=== PATIENT | female | born 1960 | race Caucasian/White ===

== ENCOUNTER → 2016-05-15 | Outpatient (REF) | payer MEDICARE ==
[~2016-05-15] MED LIST: ACET65TA; ALAVERT D12; CEFD300C; COMBVENT; FLEXERIL; FURO40TA2; INTELENCE; ISENTRESS; NABU750T; NORVIR; Norvir; PAXI20TA; PREZISTA; RANI150C; TESS100C; TRUVTAB5; TUMS500C; VALT500T; Z PACK
[2016-05-15 14:28] LABS: ALBUMIN/GLOBULIN RATIO 1.08 (1.00-1.93); BILIRUBIN,TOTAL 0.5 MG/DL (0.2-1.0); CALCIUM LEVEL 8.8 MG/DL (8.5-10.1); CREATININE FOR GFR 1.28 MG/DL (0.55-1.02); GLOMERULAR FILTRATION RATE 46.4 (>51); POTASSIUM SERUM 4.6 MEQ/L (3.5-5.1); TOTAL PROTEIN 7.7 GM/DL (6.4-8.2)
[2016-05-17 00:06] LABS: %CD3+CD4+CD8+ 3.4 % (Not Estab.); %CD3+CD4+CD8- 33.7 % (Not Estab.); %CD3+CD4-CD8+ 46.7 % (Not Estab.); %CD3+CD4-CD8- 1.1 % (Not Estab.); ABS CD3+CD4+CD8+ 143 /uL (Not Estab.); ABS CD3+CD4+CD8- 1415 /uL (Not Estab.); ABS CD3+CD4-CD8+ 1961 /uL (Not Estab.); ABS CD3+CD4-CD8- 46 /uL (Not Estab.); CD4/CD8 NYSDOH RATIO 0.72 (Not Estab.); Eosinophils 5 % (.); HCT 37.3 % (34.0-46.6); HGB 12.8 g/dL (11.1-15.9); Monocytes 5 % (.); Neutrophils 43 % (.)
== END ==
LOC: M SFHCPLAZ 11:24
PROVIDERS: ATTEND Internal Medicine Infectious Disease
DX: B20 Human immunodeficiency virus [HIV] disease (principal); E78.2 Mixed hyperlipidemia; Z79.899 Other long term (current) drug therapy
CPT/HCPCS: 36415; 80053; 80061; 81001; 83036; 86360; 87491; 87536; 87591; 90471; 90732; G0463

== ENCOUNTER → 2016-06-29 | Outpatient (CLI) | payer MEDICARE ==
--- NOTE | 2016-06-29 16:31 | REPMRS ---
Patient History The patient states she had a clinical breast exam in Patient is postmenopausal. Family history of prostate cancer in father. Digital Woman Screen Mammo: June 29, 2016 - Exam #: [id number] Bilateral CC and MLO view(s) were taken. Technologist: Mandy Marie, Technologist FINDINGS: There are scattered fibroglandular densities. There has been no change in the appearance of the mammogram from the prior studies. There is a mild amount of residual fibroglandular tissue which is fairly symmetric. There is no interval development of dominant mass, architectural distortion, or clustered microcalcification suggestive of malignancy. ASSESSMENT: BI-RADS/ACR category 1 mammogram. Negative. Recommendation Routine screening mammogram in 1 year (for women over age 40). This mammogram was interpreted with the aid of an FDA-approved computer-aided dectection system. Electronically Signed By: Cornelius Mccabe MD 06/29/16 [id number]
--- NOTE | 2016-07-03 08:57 | DEXA ---
AP SPINE L1 - L4 1.247 0.4 0.4 LT FEMUR TOTAL 0.908 -0.8 -0.7 RT FEMUR TOTAL 0.921 -0.7 -0.6 TOTAL BODY TOTAL OTHER DUAL FEMUR FRAX* ASSESSMENT Risk factors: Tobacco use. History of adult fracture. 10 year probability of fracture Major osteoporotic fracture 9.1 % Hip fracture 0.8 % COMMENTS: Normal bone densitometry of the spine. Normal bone densitometry of the right hip. There is low bone density of the left hip. FOLLOW-UP: Recommendation for the next bone density exam: 2 years. JACLYN
== END ==
LOC: M WHC 14:16
PROVIDERS: ATTEND Nurse Practitioner Women's Health
DX: Z01.419 Encounter for gynecological examination (general) (routine) without abnormal findings (principal); Z12.31 Encounter for screening mammogram for malignant neoplasm of breast; Z13.820 Encounter for screening for osteoporosis; Z78.0 Asymptomatic menopausal state; M81.0 Age-related osteoporosis without current pathological fracture; Z11.51 Encounter for screening for human papillomavirus (HPV); Z12.12 Encounter for screening for malignant neoplasm of rectum; Z11.3 Encounter for screening for infections with a predominantly sexual mode of transmission; F17.200 Nicotine dependence, unspecified, uncomplicated; A63.0 Anogenital (venereal) warts
CPT/HCPCS: 77080; 82270; 87491; 87591; 87624; G0101; G0123; G0202

== ENCOUNTER → 2016-06-29 | Outpatient (REF) | payer MEDICARE | LOC: M SFHCWAGY 14:31 | PROVIDERS: ATTEND Nurse Practitioner Women's Health | DX: Z01.419 Encounter for gynecological examination (general) (routine) without abnormal findings (principal); Z11.51 Encounter for screening for human papillomavirus (HPV); Z12.12 Encounter for screening for malignant neoplasm of rectum; Z11.3 Encounter for screening for infections with a predominantly sexual mode of transmission; Z13.820 Encounter for screening for osteoporosis; F17.200 Nicotine dependence, unspecified, uncomplicated; A63.0 Anogenital (venereal) warts; Z78.0 Asymptomatic menopausal state ==

== ENCOUNTER → 2016-11-01 | Outpatient (REF) | payer MEDICARE, OTHER, MEDICAID ==
[2016-11-01 10:57] LABS: ALBUMIN 3.7 GM/DL (3.2-5.2); ALBUMIN/GLOBULIN RATIO 1.09 (1.00-1.93); BILIRUBIN,TOTAL 0.3 MG/DL (0.2-1.0); CALCIUM LEVEL 8.8 MG/DL (8.5-10.1); CREATININE FOR GFR 1.22 MG/DL (0.55-1.02); GLOMERULAR FILTRATION RATE 49.1 (>51); POTASSIUM SERUM 4.6 MEQ/L (3.5-5.1); TOTAL PROTEIN 7.1 GM/DL (6.4-8.2)
[2016-11-04 00:07] LABS: %CD3+CD4+CD8+ 3.1 % (Not Estab.); %CD3+CD4-CD8+ 43.6 % (Not Estab.); %CD3+CD4-CD8- 0.8 % (Not Estab.); ABS CD3+CD4+CD8+ 96 /uL (Not Estab.); ABS CD3+CD4+CD8- 1147 /uL (Not Estab.); ABS CD3+CD4-CD8+ 1352 /uL (Not Estab.); ABS CD3+CD4-CD8- 25 /uL (Not Estab.); CD4/CD8 NYSDOH RATIO 0.85 (Not Estab.); Eosinophils 6 % (.); HCT 37.4 % (34.0-46.6); HGB 12.6 g/dL (11.1-15.9); Monocytes 6 % (.); Neutrophils 54 % (.); WBC 9.1 x10E3/uL (3.4-10.8)
== END ==
LOC: M SFHCPLAZ 07:45
PROVIDERS: ATTEND Internal Medicine Infectious Disease
DX: L30.9 Dermatitis, unspecified (principal); E78.2 Mixed hyperlipidemia; B20 Human immunodeficiency virus [HIV] disease; F33.42 Major depressive disorder, recurrent, in full remission

== ENCOUNTER → 2017-04-12 | Outpatient (REF) | payer MEDICARE, OTHER ==
[2017-04-12 14:03] LABS: TOTAL 25(OH) VITAMIN D 25.8 NG/ML (30.0-100.0)
[2017-04-12 14:07] LABS: ALBUMIN 3.8 GM/DL (3.2-5.2); ALBUMIN/GLOBULIN RATIO 1.06 (1.00-1.93); ALKALINE PHOSPHATASE 83 U/L (45-117); ALT/SGPT 13 U/L (12-78); ANION GAP 7 MEQ/L (8-16); AST/SGOT 12 U/L (7-37); BILIRUBIN,TOTAL 0.3 MG/DL (0.2-1.0); BLOOD UREA NITROGEN 13 MG/DL (7-18); CALCIUM LEVEL 8.5 MG/DL (8.5-10.1); CARBON DIOXIDE LEVEL 27 MEQ/L (21-32); CHLORIDE LEVEL 106 MEQ/L (98-107); CHOLESTEROL LEVEL 185 MG/DL (<200); CHOLESTEROL RISK RATIO 5.781 (<5); CREATININE FOR GFR 1.23 MG/DL (0.55-1.02); GLOMERULAR FILTRATION RATE 48.4 (>51); GLUCOSE, FASTING 94 MG/DL (70-105); HDL CHOLESTEROL 32 MG/DL (>40); LDL CHOLESTEROL 122.6 MG/DL (<100); NON-HDL-C 153 MG/DL; POTASSIUM SERUM 4.6 MEQ/L (3.5-5.1); SODIUM LEVEL 140 MEQ/L (136-145); TOTAL PROTEIN 7.4 GM/DL (6.4-8.2); TRIGLYCERIDES LEVEL 152 MG/DL (<150)
[2017-04-12 16:03] LABS: APPEARANCE, URINE HAZY (CLEAR); BACTERIA, URINE AUTO 1+ (NEGATIVE); BILIRUBIN, URINE AUTO 1+ (NEGATIVE); BLOOD, URINE BLOOD NEGATIVE (NEGATIVE); COLOR, URINE AMBER (YELLOW); GLUCOSE, URINE (UA) AUTO NEGATIVE (NEGATIVE); KETONE, URINE AUTO TRACE mg/dL (NEGATIVE); LEUKOCYTE ESTERASE, URINE AUTO TRACE (NEGATIVE); MUCUS, URINE SMALL (NEGATIVE); NITRITE, URINE AUTO NEGATIVE (NEGATIVE); PROTEIN, URINE AUTO NEGATIVE (NEGATIVE); RBC, URINE AUTO 15 /HPF (0-3); SPECIFIC GRAVITY URINE AUTO 1.028 (1.002-1.035); SQUAMOUS EPITHELIAL CELL UR AU 3 /HPF (0-6); WBC, URINE AUTO 3 /HPF (0-3)
[2017-04-12 17:43] LABS: CHLAMYDIA DNA AMPLIFICATION NEGATIVE (NEGATIVE); GC DNA AMPLIFICATION NEGATIVE (NEGATIVE)
[2017-04-14 14:09] LABS: QUANTIFERON GOLD TB Negative (Negative); TB Test (QFT) Antigen 0.06 IU/mL (.); TB Test (QFT) Antigen Minus Ni 0.01 IU/mL (.); TB Test (QFT) Mitogen >10.00 IU/mL (.); TB Test (QFT) Nil 0.05 IU/mL (.)
[2017-04-17 00:06] LABS: % CD8 Pos Lymph 49.9 % (12.0-35.5); %CD4 Pos Lymphs 38.2 % (30.8-58.5); ABS Basophils 0.1 x10E3/uL (0.0-0.2); ABS Eosinophils 0.6 x10E3/uL (0.0-0.4); ABS Lymphs 4.8 x10E3/uL (0.7-3.1); ABS Monocytes 0.8 x10E3/uL (0.1-0.9); ABS Neutophils 5.5 x10E3/uL (1.4-7.0); Abs CD4 Helper 1834 /uL (359-1519); Abs CD8 Suppres 2395 /uL (109-897); CD4/CD8 Ratio 0.77 (0.92-3.72); Eosinophils 5 % (Not Estab.); HCT 37.7 % (34.0-46.6); HEMATOLOGY COMMENTS Note: (.); HGB 12.2 g/dL (11.1-15.9); HIV-1 RNA PCR QUANT 2 LC550285 30 copies/mL (.); HIV-1 RNA PCR QUANT 3 LC550285 1.477 (.); Immature Grans 0 % (Not Estab.); Lymphocytes 41 % (Not Estab.); MCH 33.2 pg (26.6-33.0); MCHC 32.4 g/dL (31.5-35.7); MCV 103 fL (79-97); Monocytes 7 % (Not Estab.); Neutrophils 47 % (Not Estab.); Platelets 325 x10E3/uL (150-379); RBC 3.67 x10E6/uL (3.77-5.28); RDW 14.5 % (12.3-15.4); WBC 11.7 x10E3/uL (3.4-10.8)
== END ==
LOC: M SFHCPLAZ 10:46
DX: B20 Human immunodeficiency virus [HIV] disease (principal); E78.2 Mixed hyperlipidemia; G45.9 Transient cerebral ischemic attack, unspecified; A60.1 Herpesviral infection of perianal skin and rectum; L30.9 Dermatitis, unspecified; G56.01 Carpal tunnel syndrome, right upper limb; Z98.84 Bariatric surgery status; I73.9 Peripheral vascular disease, unspecified; F33.41 Major depressive disorder, recurrent, in partial remission; F17.200 Nicotine dependence, unspecified, uncomplicated; J30.1 Allergic rhinitis due to pollen
CPT/HCPCS: 84443

== ENCOUNTER → 2017-10-15 | Outpatient (CLI) | payer MEDICARE, OTHER, MEDICAID | LOC: M RAD 07:36 | DX: Z86.73 Personal history of transient ischemic attack (TIA), and cerebral infarction without residual deficits (principal); I87.2 Venous insufficiency (chronic) (peripheral); R60.0 Localized edema | CPT/HCPCS: 93880 ==

== ENCOUNTER → 2017-11-20 | Outpatient (REF) | payer MEDICARE, OTHER ==
[2017-11-20 13:58] LABS: ALBUMIN 3.5 GM/DL (3.2-5.2); ALBUMIN/GLOBULIN RATIO 0.92 (1.00-1.93); ALKALINE PHOSPHATASE 84 U/L (45-117); ALT/SGPT 17 U/L (12-78); ANION GAP 6 MEQ/L (8-16); AST/SGOT 13 U/L (7-37); BILIRUBIN,TOTAL 0.3 MG/DL (0.2-1.0); BLOOD UREA NITROGEN 10 MG/DL (7-18); CALCIUM LEVEL 8.7 MG/DL (8.5-10.1); CARBON DIOXIDE LEVEL 28 MEQ/L (21-32); CHLORIDE LEVEL 108 MEQ/L (98-107); CHOLESTEROL LEVEL 158 MG/DL (<200); CHOLESTEROL RISK RATIO 4.787 (<5); CREATININE FOR GFR 1.33 MG/DL (0.55-1.30); GLOMERULAR FILTRATION RATE 44.1 (>51); GLUCOSE, FASTING 87 MG/DL (70-100); HDL CHOLESTEROL 33 MG/DL (>40); LDL CHOLESTEROL 82.8 MG/DL (<100); NON-HDL-C 125 MG/DL; POTASSIUM SERUM 4.5 MEQ/L (3.5-5.1); SODIUM LEVEL 142 MEQ/L (136-145); TOTAL PROTEIN 7.3 GM/DL (6.4-8.2); TRIGLYCERIDES LEVEL 211 MG/DL (<150)
[2017-11-20 16:47] LABS: TOTAL 25(OH) VITAMIN D 22.6 NG/ML (30.0-100.0)
[2017-11-23 14:46] LABS: % CD8 Pos Lymph 46.9 % (12.0-35.5); %CD4 Pos Lymphs 39.2 % (30.8-58.5); ABS Eosinophils 0.4 x10E3/uL (0.0-0.4); ABS Lymphs 3.6 x10E3/uL (0.7-3.1); ABS Monocytes 0.6 x10E3/uL (0.1-0.9); ABS Neutophils 4.3 x10E3/uL (1.4-7.0); Abs CD4 Helper 1411 /uL (359-1519); Abs CD8 Suppres 1688 /uL (109-897); CD4/CD8 Ratio 0.84 (0.92-3.72); Eosinophils 5 % (Not Estab.); HCT 36.7 % (34.0-46.6); HIV-1 RNA PCR QUANT 2 LC550285 50 copies/mL (.); HIV-1 RNA PCR QUANT 3 LC550285 1.699 (.); Immature Grans 0 % (Not Estab.); Lymphocytes 40 % (Not Estab.); MCH 32.8 pg (26.6-33.0); MCHC 32.7 g/dL (31.5-35.7); MCV 100 fL (79-97); Monocytes 6 % (Not Estab.); Neutrophils 49 % (Not Estab.); Platelets 282 x10E3/uL (150-379); RBC 3.66 x10E6/uL (3.77-5.28); RDW 14.8 % (12.3-15.4); WBC 8.9 x10E3/uL (3.4-10.8)
== END ==
LOC: M SFHCPLAZ 12:01
DX: B20 Human immunodeficiency virus [HIV] disease (principal); E78.2 Mixed hyperlipidemia; E55.9 Vitamin D deficiency, unspecified
CPT/HCPCS: 80053

== ENCOUNTER → 2018-06-20 | Outpatient (REF) | payer MEDICARE, MEDICAID, OTHER ==
[2018-06-20 16:48] LABS: HEMOGLOBIN A1c 5.8 %
[2018-06-20 16:58] LABS: ALBUMIN 3.7 GM/DL (3.2-5.2); ALT/SGPT 17 U/L (12-78); APPEARANCE, URINE CLEAR (CLEAR); BACTERIA, URINE AUTO 1+ (NEGATIVE); BILIRUBIN, URINE AUTO NEGATIVE (NEGATIVE); BILIRUBIN,TOTAL 0.2 MG/DL (0.2-1.0); BLOOD UREA NITROGEN 10 MG/DL (7-18); BLOOD, URINE BLOOD 1+ (NEGATIVE); CALCIUM LEVEL 8.5 MG/DL (8.5-10.1); CARBON DIOXIDE LEVEL 30 MEQ/L (21-32); CHLORIDE LEVEL 105 MEQ/L (98-107); CHOLESTEROL LEVEL 166 MG/DL (<200); CHOLESTEROL RISK RATIO 5.187 (<5); COLOR, URINE YELLOW (YELLOW); CREATININE FOR GFR 1.15 MG/DL (0.55-1.30); GLOMERULAR FILTRATION RATE 52.2 (>51); GLUCOSE, FASTING 87 MG/DL (70-100); GLUCOSE, URINE (UA) AUTO NEGATIVE (NEGATIVE); HDL CHOLESTEROL 32 MG/DL (>40); KETONE, URINE AUTO NEGATIVE (NEGATIVE); LDL CHOLESTEROL 80 MG/DL (<100); LEUKOCYTE ESTERASE, URINE AUTO NEGATIVE (NEGATIVE); MUCUS, URINE SMALL (NEGATIVE); NITRITE, URINE AUTO NEGATIVE (NEGATIVE); NON-HDL-C 134 MG/DL; POTASSIUM SERUM 4.4 MEQ/L (3.5-5.1); PROTEIN, URINE AUTO NEGATIVE (NEGATIVE); RBC, URINE AUTO 2 /HPF (0-3); SODIUM LEVEL 139 MEQ/L (136-145); SPECIFIC GRAVITY URINE AUTO 1.008 (1.002-1.035); SQUAMOUS EPITHELIAL CELL UR AU 0 /HPF (0-6); TRIGLYCERIDES LEVEL 268 MG/DL (<150); UROBILINOGEN, URINE AUTO 0.2 mg/dL (0.0-2.0); WBC, URINE AUTO 0 /HPF (0-3)
[2018-06-20 17:56] LABS: CHLAMYDIA DNA AMPLIFICATION NEGATIVE (NEGATIVE); GC DNA AMPLIFICATION NEGATIVE (NEGATIVE)
[2018-06-22 14:37] LABS: % CD8 Pos Lymph 47.9 % (12.0-35.5); %CD4 Pos Lymphs 40.5 % (30.8-58.5); ABS Eosinophils 0.5 x10E3/uL (0.0-0.4); ABS Lymphs 4.5 x10E3/uL (0.7-3.1); ABS Monocytes 0.7 x10E3/uL (0.1-0.9); Abs CD4 Helper 1823 /uL (359-1519); Abs CD8 Suppres 2156 /uL (109-897); CD4/CD8 Ratio 0.85 (0.92-3.72); Eosinophils 6 % (Not Estab.); HCT 37.1 % (34.0-46.6); HGB 12.2 g/dL (11.1-15.9); Immature Grans 0 % (Not Estab.); Lymphocytes 46 % (Not Estab.); MCH 32.6 pg (26.6-33.0); MCHC 32.9 g/dL (31.5-35.7); MCV 99 fL (79-97); Monocytes 7 % (Not Estab.); Neutrophils 41 % (Not Estab.); Platelets 343 x10E3/uL (150-379); RBC 3.74 x10E6/uL (3.77-5.28); RDW 16.6 % (12.3-15.4); WBC 9.7 x10E3/uL (3.4-10.8)
[2018-06-26 00:06] LABS: HIV-1 RNA PCR QUANT 2 LC550285 40 copies/mL (.); HIV-1 RNA PCR QUANT 3 LC550285 1.602 (.)
== END ==
LOC: M SFHCPLAZ 13:36
PROVIDERS: ATTEND Internal Medicine Infectious Disease
DX: B20 Human immunodeficiency virus [HIV] disease (principal); E78.2 Mixed hyperlipidemia
CPT/HCPCS: 36415; 80053; 80061; 81001; 83036; 84443; 86360; 86480; 86780; 87491; 87536; 87591; G0463

== ENCOUNTER → 2019-01-13 | Outpatient (REF) | payer MEDICARE, MEDICAID, OTHER ==
[2019-01-13 16:18] LABS: ALBUMIN 3.5 GM/DL (3.2-5.2); BILIRUBIN,TOTAL 0.3 MG/DL (0.2-1.0); CALCIUM LEVEL 9.1 MG/DL (8.5-10.1); CHOLESTEROL RISK RATIO 3.794 (<5); CREATININE FOR GFR 1.17 MG/DL (0.55-1.30); GLOMERULAR FILTRATION RATE 50.9 (>51); POTASSIUM SERUM 4.4 MEQ/L (3.5-5.1); TOTAL PROTEIN 6.8 GM/DL (6.4-8.2)
[2019-01-13 16:29] LABS: HEMOGLOBIN A1c 5.3 %
[2019-01-17 14:29] LABS: % CD8 Pos Lymph 46.3 % (12.0-35.5); %CD4 Pos Lymphs 42.4 % (30.8-58.5); ABS Eosinophils 0.5 x10E3/uL (0.0-0.4); ABS Lymphs 5.1 x10E3/uL (0.7-3.1); ABS Monocytes 0.7 x10E3/uL (0.1-0.9); Abs CD4 Helper 2162 /uL (359-1519); Abs CD8 Suppres 2361 /uL (109-897); CD4/CD8 Ratio 0.92 (0.92-3.72); Eosinophils 5 % (Not Estab.); HCT 35.5 % (34.0-46.6); HGB 11.5 g/dL (11.1-15.9); HIV-1 RNA PCR QUANT 2 LC550285 60 copies/mL (.); HIV-1 RNA PCR QUANT 3 LC550285 1.778 (.); Immature Grans 0 % (Not Estab.); Lymphocytes 49 % (Not Estab.); MCH 32.8 pg (26.6-33.0); MCHC 32.4 g/dL (31.5-35.7); MCV 101 fL (79-97); Monocytes 7 % (Not Estab.); Neutrophils 39 % (Not Estab.); Platelets 268 x10E3/uL (150-450); RBC 3.51 x10E6/uL (3.77-5.28); RDW 15.4 % (12.3-15.4); WBC 10.2 x10E3/uL (3.4-10.8)
== END ==
LOC: M SFHCPLAZ 13:26
PROVIDERS: ATTEND Internal Medicine Infectious Disease
DX: B20 Human immunodeficiency virus [HIV] disease (principal); E78.2 Mixed hyperlipidemia
CPT/HCPCS: 36415; 80053; 80061; 83036; 86360; 87536; 90682; G0008; G0463

== ENCOUNTER → 2019-04-23 | Outpatient (CLI) | payer MEDICARE, MEDICAID ==
--- NOTE | 2019-04-24 03:52 | REP ---
Clinical: Symptoms related to possible CVA . Technique: Mccabe scale and color Doppler evaluation using linear high frequency transducer Findings: Two-dimensional mccabe scale and color images demonstrate mild mixed atheromatous plaquing with normal laminar flow and no appreciable narrowing. Color Doppler interrogation demonstrates arterial wave patterns with no significant spectral broadening. Normal flow direction is appreciated in the bilateral vertebral arteries. RIGHT (cm/s) LEFT (cm/s) ICA peak systolic velocity 82.6 76.4 ICA diastolic velocity 17.4 39.8 ECA peak systolic velocity 81.2 101.0 CCA peak systolic velocity 67.1 76.0 ICA/CCA ratio 1.23 1.01 Impression: No hemodynamically significant areas of narrowing or stenosis appreciated. Based on set standards narrowing falls within the less than 50% range. Electronically Signed by Patrick Raphael MD 04/24/2019 03:44 A
--- NOTE | 2019-04-24 03:58 | REP ---
Clinical: Symptoms related to atherosclerotic disease and intermittent claudication. Technique: Real time mccabe scale and color Doppler evaluation of the bilateral lower extremity arterial vasculature using linear high frequency transducer. Findings: Mccabe scale and color images demonstrate moderate amounts of atheromatous plaquing bilaterally along with moderate stenosis to the left profunda artery and focal occlusion in the distal anterior tibial artery with subsequent revascularization at the dorsalis pedis artery. Monophasic wave patterns noted from the right external iliac artery through the right lower extremity suggesting proximal atherosclerotic disease. Left lower extremity demonstrates triphasic wave patterns with the exception of the stenosis at the profunda. Peak systolic velocities (cm/sec) RIGHT LEFT CHANO 0.58 0.95 Common femoral artery 40 59 Profunda femoris 27 62/34 SFA (proximal) 61 47 SFA (mid) 58 81 SFA (distal) 54 68 Popliteal artery 27 49 KHUSHI (prox.) 17 18 Tibioperoneal trunk 38 43 PROGRAMMABLE LOGIC CONTROLLER ASSEMBLER (prox.) 28 39 PROGRAMMABLE LOGIC CONTROLLER ASSEMBLER (distal) 27 42 KHUSHI (distal) 10 occluded Impression: 1. Moderate atheromatous plaquing bilaterally with focal areas of stenosis/occlusion in the left lower extremity as described above. Electronically Signed by Patrick Raphael MD 04/24/2019 03:50 A
== END ==
LOC: M RAD 07:45
PROVIDERS: ATTEND Physician Assistant
DX: I65.23 Occlusion and stenosis of bilateral carotid arteries (principal); F17.200 Nicotine dependence, unspecified, uncomplicated; M79.606 Pain in leg, unspecified

== ENCOUNTER → 2019-05-05 | Outpatient (CLI) | payer MEDICARE, MEDICAID ==
[2019-05-05 12:35] LABS: HEMATOCRIT 38.9 % (36.0-47.0); HEMOGLOBIN 12.4 g/dl (12.0-15.5); MEAN CORPUSCULAR HEMOGLOBIN 32.8 pg (27.0-33.0); MEAN CORPUSCULAR HGB CONC 31.9 g/dl (32.0-36.5); MEAN CORPUSCULAR VOLUME 102.9 fl (80.0-96.0); PLATELET COUNT, AUTOMATED 279 10^3/uL (150-450); RED BLOOD COUNT 3.78 10^6/uL (4.00-5.40); WHITE BLOOD COUNT 9.6 10^3/uL (4.0-10.0)
[2019-05-05 13:01] LABS: CALCIUM LEVEL 9.6 MG/DL (8.5-10.1); CREATININE FOR GFR 1.18 MG/DL (0.55-1.30); GLOMERULAR FILTRATION RATE 50.4 (>51); POTASSIUM SERUM 4.6 MEQ/L (3.5-5.1)
== END ==
LOC: M LAB 11:13
PROVIDERS: ATTEND Physician Assistant
DX: I70.213 Atherosclerosis of native arteries of extremities with intermittent claudication, bilateral legs (principal)

== ENCOUNTER → 2019-06-10 | Outpatient (CLI) | payer MEDICARE, MEDICAID ==
[~2019-06-10] MED LIST changes: +HEPARIN 1,000 UNITS/ML 10ML VIAL (FOR RADIOLOGY& DIALYSIS ONLY)(J1644-10) As Ordered ONE; +ISOVUE-300 61% 50ML VIAL (Q9967) As Ordered ONE; +LIDOCAINE 1% MDV 20ML VIAL As Ordered ONE; +MIDAZOLAM INJ 2 MG/2 ML VIAL (J2250) As Ordered ONE; +OMEP1CAP73 PO; +PLAV1TAB2 PO; +fentaNYL 100 MCG/2 ML INJECTION (J3010) As Ordered ONE
[2019-06-10 07:22] LABS: HEMATOCRIT 36.1 % (36.0-47.0); HEMOGLOBIN 12.1 g/dl (12.0-15.5); MEAN CORPUSCULAR HEMOGLOBIN 34.4 pg (27.0-33.0); MEAN CORPUSCULAR HGB CONC 33.5 g/dl (32.0-36.5); MEAN CORPUSCULAR VOLUME 102.6 fl (80.0-96.0); PLATELET COUNT, AUTOMATED 253 10^3/uL (150-450); RED BLOOD COUNT 3.52 10^6/uL (4.00-5.40); WHITE BLOOD COUNT 9.6 10^3/uL (4.0-10.0)
[2019-06-10 07:50] LABS: CALCIUM LEVEL 8.8 MG/DL (8.5-10.1); CREATININE FOR GFR 1.28 MG/DL (0.55-1.30); GLOMERULAR FILTRATION RATE 45.9 (>51); POTASSIUM SERUM 4.4 MEQ/L (3.5-5.1)
--- NOTE | 2019-06-10 09:18 | ROOPDOC ---
[facility] Report Of Operation Report of Operation DATE OF PROCEDURE: 06/10/19 PREPROCEDURE DIAGNOSES: Atherosclerosis of the caddo vessels with lifestyle limiting claudication, right lower extremity worse than left POSTPROCEDURE DIAGNOSES: Same PROCEDURE: 1. Ultrasound-guided access left common femoral artery and right common femoral artery 2. Aortoiliofemoral arteriogram and right lower extremity runoff 3. Balloon expandable stents bilateral common iliac artery: 9 x 57 expressed stent right common iliac artery, 9 x 37 expressed at left common iliac artery 4. Completion arteriograms 5. Mynx closure bilateral common femoral arteries SURGEON: Hi Rincon MD ANESTHESIA: Local anesthesia only with 18 mL lidocaine. Sedation was not used for this procedure. CONTRAST: 47 mL Isovue-300 INDICATION FOR PROCEDURE: This is a very pleasant 58-year-old patient with atherosclerosis of the caddo vessels and lifestyle limiting claudication, right lower extremity greater than left. Her noninvasive arterial duplex suggested iliac disease, right worse than left. Risks benefits alternatives to an arteriogram potential intervention were explained to the patient and she is agreeable to proceed. Informed consent was obtained. INTERPRETATION: 1. The distal aorta is calcified but widely patent. There is a 90% stenosis at the origin of the right common iliac artery and narrowing down to the external iliac artery. The right external iliac artery is widely patent. The right hypogastric artery collateralizes with the left hypogastric artery to provide additional blood supply due to heavy plaque at the common iliac artery origin. The left common iliac artery has about a 30-40% stenosis at the origin in the proximal third of the vessel, and then has poststenotic dilatation and is widely patent through the external iliac artery. The hypogastric on the left collateralizes to the right to provide additional blood flow due to stenosis at the origin of the right common iliac artery. 2. The right common femoral artery runs off until widely patent profunda and SFA. There is good flow through this SFA to the popliteal which has in-line flow to the foot through the peroneal and posterior tibial artery. The plantar vessels are mostly filled from the posterior tibial artery. The anterior tibial artery occludes a few centimeters from its origin and does not reconstitute. There are extensive collaterals from the peroneal throughout the calf and the ankle. 3. After balloon expandable stents replaced at the origin of the common iliac arteries, there was widely patent flow through both vessels with no dissection embolization or extravasation noted. The stent is originate at the origin of the vessels, and are not kissing stents, so we have preserved our capability for up and over access in the future. REPORT OF OPERATION: The patient was brought to the angiographic suite in stable condition. Her bilateral groins were prepped and draped in a sterile fashion. A timeout was performed. The patient had mentioned before the procedure that she had a history of arrhythmias with sedation in the past, so we will attempt to do this procedure without sedation if she can tolerate it comfortably. The patient also forgot to hold her Plavix, so aside from heparin saline flushes, we will not give additional heparin and less long balloon inflations are needed. Local anesthesia was administered to the skin and subcutaneous tissue over the left common femoral artery and a microneedle was used to access the artery under ultrasound guidance. A wire was passed through this access under fluoroscopic guidance and a micro-sheath was placed. Through this access of Glidewire was advanced into the aorta and the sheath was exchanged for 6 Angolan sheath which was flushed with saline. We then advanced an Omni flushed catheter and the distal aorta and aortoiliofemoral arteriograms were performed. Please interpretation above. Local anesthesia was then administered to skin and subcutaneous tissue over the right common femoral artery and a microneedle was used to access the artery under ultrasound guidance. A wire was passed through this access and for Angolan micro-sheath was placed and flushed with saline. We then advanced a Glidewire through this access into the aorta under fluoroscopic guidance and the sheath was exchanged for a 7 Angolan sheath. The sheath on the left was also exchanged for 7 Angolan sheath. We then advanced a 9 x 37 expressed stent on the left into the common iliac artery, and a 9 x 57 expressed balloon expandable stent on the right to the common iliac artery. A quick arteriogram confirmed the origins of the vessels and we deployed the stents under fluoroscopic guidance. Following this, there was widely patent flow through both iliac systems with no dissection or embolization or extravasation noted. This dramatically improved the flow on the right, and also the inflow on the left as well. We then performed a right lower extremity runoff through the existing right common femoral sheath, please interpretation above. The patient does have occlusion of the anterior tibial artery, but she has excellent two-vessel runoff to the foot, and with the dramatic improvement in inflow, I feel this will be adequate to relieve her claudication. She does not have wounds or rest pain, as I did not feel at this time we would pursue tibial intervention. Also, the patient is still smoking, although she will start Chantix to try to quit soon, so I felt tibial intervention might be best revisited if needed after the patient tries smoking cessation and a walking program. For now, I think she has more than adequate flow to the foot. We deployed Mynx closure devices in both common femoral arteries under fluoroscopic guidance and pressure was held for 10 minutes following the platelet with good hemostasis. Sterile dressings were applied and the patient was taken to recovery in stable condition. She tolerated the procedure well without sedation and was hemodynamically stable throughout the procedure. ESTIMATED BLOOD LOSS: Approximately 5 mL. COMPLICATIONS: None. PLAN: Okay for the patient to resume her home diet and medications, including Plavix. We will see her back in clinic in a week to check her groin access sites and see how she is doing. She should continue her efforts for smoking cessation. We appreciate the opportunity to participate in the care of this patient. HI RINCON MD Jun 10, 2019 09:18
[2019-06-10 12:55] VITALS: BP 123/71
== END ==
LOC: M IRPRO 06:46
PROVIDERS: ATTEND Surgery Vascular Surgery
DX: I70.213 Atherosclerosis of native arteries of extremities with intermittent claudication, bilateral legs (principal); I65.23 Occlusion and stenosis of bilateral carotid arteries; B20 Human immunodeficiency virus [HIV] disease; F17.210 Nicotine dependence, cigarettes, uncomplicated; R51 Headache; M54.9 Dorsalgia, unspecified; Z88.6 Allergy status to analgesic agent; Z79.899 Other long term (current) drug therapy
CPT/HCPCS: 37221; 75716; 80048; 85027; C1760; C1769; C1876; C1887; C1894; J1644; J2250; J3010; Q9967

== ENCOUNTER → 2019-07-01 | Outpatient (REF) | payer OTHER, MEDICAID, MEDICARE ==
[~2019-07-01] MED LIST changes: -HEPARIN 1,000 UNITS/ML 10ML VIAL (FOR RADIOLOGY& DIALYSIS ONLY)(J1644-10) As Ordered ONE; -ISOVUE-300 61% 50ML VIAL (Q9967) As Ordered ONE; -LIDOCAINE 1% MDV 20ML VIAL As Ordered ONE; -MIDAZOLAM INJ 2 MG/2 ML VIAL (J2250) As Ordered ONE; -fentaNYL 100 MCG/2 ML INJECTION (J3010) As Ordered ONE
[2019-07-01 12:15] LABS: ALBUMIN 3.7 GM/DL (3.2-5.2); BILIRUBIN,TOTAL 0.4 MG/DL (0.2-1.0); CALCIUM LEVEL 9.2 MG/DL (8.5-10.1); CHOLESTEROL RISK RATIO 4.848 (<5); CREATININE FOR GFR 1.09 MG/DL (0.55-1.30); GLOMERULAR FILTRATION RATE 55.3 (>51); POTASSIUM SERUM 4.3 MEQ/L (3.5-5.1); TOTAL PROTEIN 7.2 GM/DL (6.4-8.2)
[2019-07-01 12:37] LABS: HEMOGLOBIN A1c 5.5 %
[2019-07-03 10:16] LABS: % CD8 Pos Lymph 50.8 % (12.0-35.5); %CD4 Pos Lymphs 36.5 % (30.8-58.5); ABS Basophils 0.1 x10E3/uL (0.0-0.2); ABS Eosinophils 0.5 x10E3/uL (0.0-0.4); ABS Lymphs 3.9 x10E3/uL (0.7-3.1); ABS Monocytes 0.7 x10E3/uL (0.1-0.9); ABS Neutophils 4.9 x10E3/uL (1.4-7.0); Abs CD4 Helper 1424 /uL (359-1519); Abs CD8 Suppres 1981 /uL (109-897); CD4/CD8 Ratio 0.72 (0.92-3.72); Eosinophils 5 % (Not Estab.); HCT 36.4 % (34.0-46.6); HIV-1 RNA PCR QUANT 2 LC550285 110 copies/mL (.); HIV-1 RNA PCR QUANT 3 LC550285 2.041 (.); Immature Grans 0 % (Not Estab.); Lymphocytes 39 % (Not Estab.); MCH 33.4 pg (26.6-33.0); MCV 101 fL (79-97); Monocytes 7 % (Not Estab.); Neutrophils 48 % (Not Estab.); Platelets 329 x10E3/uL (150-450); RBC 3.59 x10E6/uL (3.77-5.28); RDW 15.7 % (11.7-15.4); WBC 10.1 x10E3/uL (3.4-10.8)
== END ==
LOC: M SFHCPLAZ 09:26
PROVIDERS: ATTEND Internal Medicine Infectious Disease
DX: B20 Human immunodeficiency virus [HIV] disease (principal); E78.2 Mixed hyperlipidemia

== ENCOUNTER → 2019-07-23 | Outpatient (CLI) | payer MEDICARE, MEDICAID ==
--- NOTE | 2019-07-24 07:38 | REP ---
Clinical: Lung screening. History smoking. Comparison: 03/23/2008 Technique: Axial low-dose noncontrast images from the thoracic inlet to the upper abdomen using lung screening technique. Findings: The lung nuno demonstrate scattered subtle ground-glass opacity along with minimal presumed linear scarring in the right middle lobe and lingula which are nonspecific findings and should be correlated with physical examination at the time of CT. There is a small 3 mm nodule in the right upper lobe (image 30). No focal consolidation. No effusion. No pneumothorax. Impression: Lung-RADS category II. Management recommendations include 12-month low-dose CT follow-up exam. Electronically Signed by Patrick Raphael MD 07/24/2019 07:30 A
== END ==
LOC: M RAD 10:07
PROVIDERS: ATTEND Internal Medicine Infectious Disease
DX: Z12.2 Encounter for screening for malignant neoplasm of respiratory organs (principal); F17.210 Nicotine dependence, cigarettes, uncomplicated; F33.42 Major depressive disorder, recurrent, in full remission
CPT/HCPCS: 90832; G0297

== ENCOUNTER → 2019-07-25 | Outpatient (CLI) | payer MEDICARE, MEDICAID ==
--- NOTE | 2019-07-25 11:38 | REP ---
REASON: History of peripheral vascular disease. RIGHT: The ankle brachial index is 0.97. Peak Systolic Velocity Phasicity HYDROPONICS GROWER 89.0 cm/s Triphasic Profunda 104.0 cm/s Biphasic SFA proximal 107.0 cm/s Triphasic SFA mid 149.0 cm/s Triphasic SFA distal 150.0 cm/s Triphasic Popliteal 76-82 cm/s Triphasic KHUSHI proximal 79.0 cm/s Triphasic Tibioperoneal trunk 78.0 cm/s Triphasic COMMUNITY HEALTH NAVIGATOR proximal 85.0 cm/s Triphasic COMMUNITY HEALTH NAVIGATOR distal 94.0 cm/s Triphasic KHUSHI distal 0-39 cm/s Biphasic LEFT: The ankle brachial index is 1.0. Peak Systolic Velocity Phasicity HYDROPONICS GROWER 82.0 cm/s Triphasic Profunda 91.0 cm/s Biphasic SFA proximal 113.0 cm/s Triphasic SFA mid 126.0 cm/s Triphasic SFA distal 121.0 cm/s Triphasic Popliteal 67-54 cm/s Triphasic KHUSHI proximal 66.0 cm/s Biphasic Tibioperoneal trunk 74.0 cm/s Triphasic COMMUNITY HEALTH NAVIGATOR proximal 89.0 cm/s Triphasic COMMUNITY HEALTH NAVIGATOR distal 74.0 cm/s Triphasic KHUSHI distal 0 NA Dorsalis pedis 26.0 cm/s Biphasic The technologist noted moderate plaque throughout. Electronically Signed by Eric Vu DO 07/25/2019 12:12 P
== END ==
LOC: M RAD 08:37
PROVIDERS: ATTEND Physician Assistant
DX: I70.213 Atherosclerosis of native arteries of extremities with intermittent claudication, bilateral legs (principal); F17.210 Nicotine dependence, cigarettes, uncomplicated

== ENCOUNTER → 2019-09-26 | Outpatient (CLI) | payer MEDICARE, MEDICAID | LOC: M LABSMTC 12:59 | PROVIDERS: ATTEND Family Medicine | DX: Z03.818 Encounter for observation for suspected exposure to other biological agents ruled out (principal); Z11.59 Encounter for screening for other viral diseases | CPT/HCPCS: C9803; U0003 ==

== ENCOUNTER → 2020-02-24 | Outpatient (REF) | payer MEDICARE, MEDICAID ==
[2020-02-24 14:06] LABS: ALBUMIN 3.8 GM/DL (3.2-5.2); BILIRUBIN,TOTAL 0.4 MG/DL (0.2-1.0); CALCIUM LEVEL 9.4 MG/DL (8.5-10.1); CHOLESTEROL RISK RATIO 5.545 (<5); CREATININE FOR GFR 1.22 MG/DL (0.55-1.30); GLOMERULAR FILTRATION RATE 48.4 (>51); POTASSIUM SERUM 4.6 MEQ/L (3.5-5.1); TOTAL PROTEIN 7.1 GM/DL (6.4-8.2)
[2020-02-26 12:07] LABS: % CD8 Pos Lymph 48.5 % (12.0-35.5); ABS Basophils 0.1 x10E3/uL (0.0-0.2); ABS Eosinophils 0.5 x10E3/uL (0.0-0.4); ABS Lymphs 4.3 x10E3/uL (0.7-3.1); ABS Monocytes 0.6 x10E3/uL (0.1-0.9); Abs CD4 Helper 1634 /uL (359-1519); Abs CD8 Suppres 2086 /uL (109-897); CD4/CD8 Ratio 0.78 (0.92-3.72); Eosinophils 5 % (Not Estab.); HCT 34.9 % (34.0-46.6); HGB 11.7 g/dL (11.1-15.9); HIV-1 RNA PCR QUANT 2 LC550285 210 copies/mL (.); HIV-1 RNA PCR QUANT 3 LC550285 2.322 (.); Immature Grans 0 % (Not Estab.); Lymphocytes 41 % (Not Estab.); MCH 32.9 pg (26.6-33.0); MCHC 33.5 g/dL (31.5-35.7); MCV 98 fL (79-97); Monocytes 6 % (Not Estab.); Neutrophils 47 % (Not Estab.); Platelets 293 x10E3/uL (150-450); RBC 3.56 x10E6/uL (3.77-5.28); RDW 13.6 % (11.7-15.4); WBC 10.5 x10E3/uL (3.4-10.8)
== END ==
LOC: M SFHCPLAZ 11:36
PROVIDERS: ATTEND Internal Medicine Infectious Disease
DX: B20 Human immunodeficiency virus [HIV] disease (principal); E78.2 Mixed hyperlipidemia; Z23 Encounter for immunization
CPT/HCPCS: 36415; 80053; 80061; 86360; 87536; 90471; 90682; G0463

== ENCOUNTER → 2020-03-13 | Outpatient (CLI) | payer SELFPAY | LOC: M LABSMTC 13:17 | PROVIDERS: ATTEND Pediatrics | DX: Z20.828 Contact with and (suspected) exposure to other viral communicable diseases (principal) ==

== ENCOUNTER → 2020-04-21 | Outpatient (REF) | payer MEDICARE, MEDICAID ==
[2020-04-21 15:23] LABS: HEMOGLOBIN A1c 5.9 %
[2020-04-21 15:27] LABS: ALBUMIN 3.7 GM/DL (3.2-5.2); BILIRUBIN,TOTAL 0.3 MG/DL (0.2-1.0); CHOLESTEROL RISK RATIO 4.71 (<5); CREATININE FOR GFR 1.33 MG/DL (0.55-1.30); GLOMERULAR FILTRATION RATE 43.8 (>51); MAGNESIUM LEVEL 2.4 MG/DL (1.8-2.4); PERCENT SATURATION 17.8 % (13.2-45.0); PHOSPHORUS LEVEL 3.7 MG/DL (2.5-4.9); POTASSIUM SERUM 4.7 MEQ/L (3.5-5.1); THYROID STIMULATING HORMONE 1.45 uIU/ML (0.358-3.740); TOTAL 25(OH) VITAMIN D 14.9 NG/ML (30.0-100.0); TOTAL PROTEIN 7.1 GM/DL (6.4-8.2)
== END ==
LOC: M PLALAB 11:37
PROVIDERS: ATTEND Family Medicine
DX: K90.9 Intestinal malabsorption, unspecified (principal); E78.2 Mixed hyperlipidemia; Z13.1 Encounter for screening for diabetes mellitus; E55.9 Vitamin D deficiency, unspecified

== ENCOUNTER → 2020-05-11 | Outpatient (CLI) | payer MEDICARE, MEDICAID ==
--- NOTE | 2020-05-11 16:47 | REP ---
INDICATION: ARHSCL [place] ARTERIES W/ CLAUDICATION RAMYA LEGS. COMPARISON: Comparison sonography 25 July 2019.. TECHNIQUE: Bilateral lower extremity arterial Doppler ultrasound. FINDINGS: Ankle brachial indices are 1.1 on the right and 0.9 on the left essentially unchanged. Mild to moderate plaquing is observed throughout the lower extremities bilaterally. Small right distal anterior tibial artery with slow flow seen but no occlusion or high-grade stenosis is appreciated. On the left, the posterior tibial artery is the dominant arterial slight supply across the ankle. Overall no significant change from the prior study. Triphasic and biphasic waveforms are noted bilaterally except for the distal MARKETING PROJECT COORDINATOR and KHUSHI on the right which show monophasic waveforms. Right lower extremity arterial Doppler velocity chart: Right HAND INSPECTOR PSV 84 cm/S Profundal 110 Proximal SFA 100 Mid SFA 104 Distal SFA 127 Popliteal 69 Proximal KHUSHI 31 Tibial-peroneal trunk 75 Proximal MARKETING PROJECT COORDINATOR 54 Distal MARKETING PROJECT COORDINATOR 79 Distal KHUSHI 13 Left lower extremity arterial Doppler velocity chart: Left HAND INSPECTOR PSV 70 cm/S Profundal 102 Proximal SFA 112 Mid SFA 112 Distal SFA 99 Popliteal 55 Proximal KHUSHI 72 Tibial-peroneal trunk 54 Proximal MARKETING PROJECT COORDINATOR 57 Distal MARKETING PROJECT COORDINATOR 65 Distal KHUSHI 54 IMPRESSION: Mild to moderate atherosclerotic plaquing. No high-grade stenosis or occlusion seen. Findings similar to the prior study <Electronically signed by Timi Desouza > 05/11/20 [id number]
== END ==
LOC: M RAD 11:10
PROVIDERS: ATTEND Surgery Vascular Surgery
DX: I70.213 Atherosclerosis of native arteries of extremities with intermittent claudication, bilateral legs (principal)

== ENCOUNTER → 2020-08-13 | Outpatient (CLI) | payer MEDICARE ==
--- NOTE | 2020-08-13 14:06 | REP ---
INDICATION: NICOTINE DEPENDENCE, CIGARETTES, W OTH DISORDERS. COMPARISON: 07/23/2019 and 03/23/2008 TECHNIQUE: Axial noncontrast images from the thoracic inlet to the upper abdomen using low-dose lung screening technique (LDCT). As per the protocol only lung window images were sent to the read station for interpretation FINDINGS: There has been no significant change compared to the prior exam. There are no new abnormal nodules, masses, or opacities. There is stable cylindrical bronchiectasis. Grossly, the mediastinum and pulmonary franklin are unchanged. Grossly, the imaged upper abdomen and imaged osseous structures are unchanged. IMPRESSION: Stable lung rads category [address] examination of the chest. <Electronically signed by Eric Vu > 08/13/20 [id number]
== END ==
LOC: M RAD 13:22
PROVIDERS: ATTEND Family Medicine
DX: Z12.2 Encounter for screening for malignant neoplasm of respiratory organs (principal); F17.210 Nicotine dependence, cigarettes, uncomplicated

== ENCOUNTER → 2020-09-27 | Outpatient (REF) | payer MEDICARE, MEDICAID ==
[2020-09-27 15:42] LABS: CALCIUM LEVEL 9.1 MG/DL (8.5-10.1); CREATININE FOR GFR 1.05 MG/DL (0.55-1.30); GLOMERULAR FILTRATION RATE 57.5 (>51); POTASSIUM SERUM 4.5 MEQ/L (3.5-5.1)
== END ==
LOC: M SFHCPLAZ 11:07
PROVIDERS: ATTEND Family Medicine
DX: N18.31 Chronic kidney disease, stage 3a (principal)
CPT/HCPCS: 36415; 80048; G0463

== ENCOUNTER → 2020-10-22 | Outpatient (CLI) | payer MEDICARE, MEDICAID ==
[2020-10-22 14:02] LABS: ALBUMIN 3.6 GM/DL (3.2-5.2); BILIRUBIN,TOTAL 0.3 MG/DL (0.2-1.0); CALCIUM LEVEL 9.4 MG/DL (8.5-10.1); CHOLESTEROL RISK RATIO 5.428 (<5); CREATININE FOR GFR 1.33 MG/DL (0.55-1.30); GLOMERULAR FILTRATION RATE 43.8 (>51); POTASSIUM SERUM 4.8 MEQ/L (3.5-5.1)
[2020-10-24 10:14] LABS: % CD8 Pos Lymph 47.2 % (12.0-35.5); %CD4 Pos Lymphs 38.3 % (30.8-58.5); ABS Basophils 0.1 x10E3/uL (0.0-0.2); ABS Eosinophils 0.4 x10E3/uL (0.0-0.4); ABS Lymphs 3.9 x10E3/uL (0.7-3.1); ABS Monocytes 0.6 x10E3/uL (0.1-0.9); ABS Neutophils 4.9 x10E3/uL (1.4-7.0); Abs CD4 Helper 1494 /uL (359-1519); Abs CD8 Suppres 1841 /uL (109-897); CD4/CD8 Ratio 0.81 (0.92-3.72); Eosinophils 4 % (Not Estab.); HCT 36.5 % (34.0-46.6); HIV-1 RNA PCR QUANT 2 LC550285 80 copies/mL (.); HIV-1 RNA PCR QUANT 3 LC550285 1.903 (.); Immature Grans 0 % (Not Estab.); Lymphocytes 39 % (Not Estab.); MCHC 32.9 g/dL (31.5-35.7); MCV 97 fL (79-97); Monocytes 6 % (Not Estab.); Neutrophils 50 % (Not Estab.); Platelets 293 x10E3/uL (150-450); RBC 3.75 x10E6/uL (3.77-5.28); RDW 14.4 % (11.7-15.4)
== END ==
LOC: M PLALAB 09:59
PROVIDERS: ATTEND Internal Medicine Infectious Disease
DX: B20 Human immunodeficiency virus [HIV] disease (principal); E78.2 Mixed hyperlipidemia

== ENCOUNTER 2020-12-27 12:32 | Emergency (ER) | payer MEDICARE, MEDICAID ==
[~2020-12-27] VITALS: Ht 170.2 cm; Wt 102.7 kg
[2020-12-27] MEDS ORDERED: PREZ800T2 PO (15:30)
[2020-12-27] MEDS ORDERED: CYCL-707 PO (15:30)
[2020-12-27] MEDS ORDERED: CLOP75TA2 PO (15:31)
[2020-12-27] MEDS ORDERED: TIVI1TAB PO (15:31)
[2020-12-27] MEDS ORDERED: ATOR40TA75 PO (15:31)
[2020-12-27] MEDS ORDERED: [UNRECOGNIZED DRUG - CODE] PO (15:31)
[2020-12-27] MEDS ORDERED: SUMA50TA2 PO (15:31)
[2020-12-27] MEDS ORDERED: ALBU8.5H INH (15:31)
[2020-12-27] MEDS ORDERED: TRAZ-252 PO (15:31)
[2020-12-27] MEDS ORDERED: PARO30TA4 PO (15:31)
[2020-12-27] MEDS ORDERED: GABA600T4 PO (15:31)
[2020-12-27] MEDS ORDERED: SYMB80INH INH (15:31)
[2020-12-27] MEDS ORDERED: OMEP-218 PO (15:31)
[2020-12-27] MEDS ORDERED: D31000TA2 PO (15:31)
[2020-12-27] MEDS ORDERED: RITO100T PO (15:31)
[2020-12-27] MEDS ORDERED: NYAM10003 TOP (15:31)
--- NOTE | 2020-12-27 17:37 | REP ---
INDICATION: red tender, swollen area, concern for abscess. COMPARISON: None. TECHNIQUE: Targeted right mid to lateral abdominal wall ultrasound. FINDINGS: Soft tissue sonography of the red tender area of swelling in the right mid lateral abdomen demonstrates a subcutaneous complex collection measuring 4.6 x 6.1 x 2.1 cm. This is compatible with subcutaneous abscess. IMPRESSION: Findings compatible with subcutaneous abscess as above. <Electronically signed by Timi Desouza > 12/27/20 [id number]
[2020-12-27] MEDS ORDERED: cefTRIAXone SOD 1 GM in D5W MINI-BAG PLUS 50 ML IV ONE (17:45)
[2020-12-27] MEDS ORDERED: LIDOCAINE 2% MDV 20ML VIAL SC ONE (17:55)
[2020-12-27 17:59] LABS: BASO # 0.1 10^3/uL (0.0-0.2); BASO % 0.4 % (0.0-1.0); EOS # 0.3 10^3/uL (0.0-0.5); EOS % 2.3 % (0.0-3.0); HEMATOCRIT 34.4 % (36.0-47.0); HEMOGLOBIN 11.2 g/dl (12.0-15.5); LYMPH # 3.6 10^3/uL (1.5-5.0); LYMPH % 26.1 % (24.0-44.0); MEAN CORPUSCULAR HEMOGLOBIN 32.4 pg (27.0-33.0); MEAN CORPUSCULAR HGB CONC 32.6 g/dl (32.0-36.5); MEAN CORPUSCULAR VOLUME 99.4 fl (80.0-96.0); MONO # 1.2 10^3/uL (0.0-0.8); MONO % 8.6 % (2.0-8.0); NEUTROPHILS # 8.5 10^3/uL (1.5-8.5); PLATELET COUNT, AUTOMATED 326 10^3/uL (150-450); RED BLOOD COUNT 3.46 10^6/uL (4.00-5.40); WHITE BLOOD COUNT 13.8 10^3/uL (4.0-10.0)
[2020-12-27] MEDS ORDERED: DOXY1CAP62 PO (18:12)
[2020-12-27 18:33] LABS: ERYTHROCYTE SEDIMENTATION RATE 86 mm/hr (0-30)
[2020-12-27 18:58] VITALS: BP 116/60
== END 2020-12-27 20:20 | disposition home or self-care (01) ==
LOC: M ED 12:32
DX: L02.211 Cutaneous abscess of abdominal wall (principal); L03.311 Cellulitis of abdominal wall; J44.9 Chronic obstructive pulmonary disease, unspecified; K21.9 Gastro-esophageal reflux disease without esophagitis; I25.10 Atherosclerotic heart disease of native coronary artery without angina pectoris; Z79.899 Other long term (current) drug therapy; Z79.01 Long term (current) use of anticoagulants; Z88.8 Allergy status to other drugs, medicaments and biological substances; F17.210 Nicotine dependence, cigarettes, uncomplicated
CPT/HCPCS: 10060; 36415; 76705; 80047; 83605; 85025; 85652; 86140; 87040; 87070; 87205; 96365; 99284; J0696

== ENCOUNTER → 2021-01-04 | Outpatient (CLI) | payer MEDICARE, MEDICAID ==
[~2021-01-04] MED LIST changes: +ALBU8.5H INH; +ATOR40TA75 PO; +CLOP75TA2 PO; +CYCL-707 PO; +D31000TA2 PO; +DOXY1CAP62 PO; +GABA600T4 PO; +NYAM10003 TOP; +OMEP-218 PO; +PARO30TA4 PO; +PREZ800T2 PO; +RITO100T PO; +SUMA50TA2 PO; +SYMB80INH INH; +TIVI1TAB PO; +TRAZ-252 PO; +[UNRECOGNIZED DRUG - CODE] PO
--- NOTE | 2021-01-04 13:21 | REPMRS ---
Patient History The patient states she has not had a clinical breast exam in over a year. Family history of prostate cancer in father. Patient states no breast complaints today. Patient has signed MRS History Sheet. Digital Woman Screen Mammo: January 04, 2021 - Exam #: [id number] Bilateral CC and MLO view(s) were taken. Technologist: Fabiola Wright, Technologist Prior study comparison: June 29, 2016, digital woman screen mammo performed at [facility]. 2011, bilateral digital woman screen mammo performed at [facility]. FINDINGS: The breast tissue is almost entirely fat. Screening. Digital screening (2D) mammography was performed bilaterally in the CC and MLO projections. Additionally, breast tomosynthesis (3D mammography) was performed bilaterally in the CC and MLO projections. Todays exam was compared to the prior exam/exams. By history, the patient has no complaints of a palpable breast abnormality or other significant breast complaints. The breasts are unchanged in size and shape. There are no samaria-soft tissue densities or spiculated masses. There is no internal architectural distortion. There are no suspicious samaria-calcific clusters. Skin thickening or nipple retraction is not present. IMPRESSION: BI-RADS Category 2- Benign Findings. There is no evidence of malignant alteration of the breasts. Followup examination recommended in one year. The Volpara volumetric breast density category is A, the breasts are almost entirely fatty. This mammogram was read with the assistance of [employer],an FDA approved computer aided detection system for mammography. The lifetime Tyrer-Cuzick score is 7 % Negative x-ray reports should not delay surgical consultation if a dominant or clinically suspicious mass is present. Not all breast cancers can be identified by mammography. Therefore, we recommend that you continue to perform regular breast self-examination and physical examination and then promptly contact your physician of any concerns or changes. Adenosis and dense breasts may obscure an underlying neoplasm. Assessment: BI-RADS/ACR category 2 mammogram. Benign Findings. Recommendation Routine screening mammogram of both breasts in 1 year. Electronically Signed By: Eric Vu DO 01/04/21 [id number]
== END ==
LOC: M WHC 12:28
PROVIDERS: ATTEND Family Medicine
DX: Z12.31 Encounter for screening mammogram for malignant neoplasm of breast (principal); F33.40 Major depressive disorder, recurrent, in remission, unspecified; F60.7 Dependent personality disorder
CPT/HCPCS: 77063; 77067; G0463

== ENCOUNTER → 2021-02-07 | Outpatient (CLI) | payer MEDICARE, MEDICAID ==
[~2021-02-07] MED LIST changes: +DOXY-443 PO; -DOXY1CAP62 PO
--- NOTE | 2021-02-08 16:04 | SLEEPCENT ---
DATE: 02/07/2021 ORDERED BY: Julia Jordan Nocturnal polysomnography was performed for evaluation of sleep physiology in this patient with a history of excessive somnolence, nonrestorative sleep, and a prior history of sleep apnea syndrome. There was 8 hours and 18 minutes of data reviewed. There 427 minutes of sleep identified. Sleep latency was normal at 46 minutes. REM latency was mildly prolonged at 115 minutes. Sleep architecture showed some fragmentation. There were three REM periods. Overall sleep efficiency 86.8%. The electrocardiogram showed a sinus rhythm with an average heart rate of 80 beats per minute. Rate ranged 70-100. EEG showed normal waveforms for wake and sleep. There were 265 respiratory event index of 10 seconds in duration or greater for an apnea-hypopnea index of 37.2. The events were primarily obstructive. There were 36 mixed and central apneas seen. Respiratory events were not exclusive to sleep stage nor body posture. Arousals from respiratory events occurred 1.7 times per hour. There was some activity in the limb leads, but arousals from limb events were few. Snoring was noted over the entire study. IMPRESSION: Severe obstructive sleep apnea syndrome (G47.33). Apnea-hypopnea index 37.2. RECOMMENDATION: The patient should be encouraged to return to the sleep disorder center for pressure therapy. In the interim, alcohol and sedative avoidance should be practiced and caution exercised during the operation of motor vehicles.
== END ==
LOC: M SLEEP 20:00
PROVIDERS: ATTEND Nurse Practitioner Family
DX: G47.33 Obstructive sleep apnea (adult) (pediatric) (principal)

== ENCOUNTER → 2021-02-14 | Outpatient (REF) | payer MEDICARE, MEDICAID | LOC: M SFHCPLAZ 09:17 | PROVIDERS: ATTEND Physician Assistant | DX: R05.9 Cough, unspecified (principal); N61.1 Abscess of the breast and nipple | CPT/HCPCS: 87070; 87077; 87186; U0003 ==

== ENCOUNTER → 2021-02-22 | Outpatient (CLI) | payer MEDICARE, MEDICAID ==
[2021-02-22 14:16] LABS: ALBUMIN 3.7 GM/DL (3.2-5.2); BILIRUBIN,TOTAL 0.3 MG/DL (0.2-1.0); CALCIUM LEVEL 9.4 MG/DL (8.5-10.1); CREATININE FOR GFR 1.09 MG/DL (0.55-1.30); GLOMERULAR FILTRATION RATE 54.9 (>51); POTASSIUM SERUM 4.6 MEQ/L (3.5-5.1); TOTAL PROTEIN 7.2 GM/DL (6.4-8.2)
[2021-02-23 18:08] LABS: % CD8 Pos Lymph 49.4 % (12.0-35.5); %CD4 Pos Lymphs 37.8 % (30.8-58.5); ABS Basophils 0.1 x10E3/uL (0.0-0.2); ABS Eosinophils 0.5 x10E3/uL (0.0-0.4); ABS Monocytes 0.6 x10E3/uL (0.1-0.9); Abs CD4 Helper 1512 /uL (359-1519); Abs CD8 Suppres 1976 /uL (109-897); CD4/CD8 Ratio 0.77 (0.92-3.72); Eosinophils 5 % (Not Estab.); HCT 33.6 % (34.0-46.6); HGB 11.4 g/dL (11.1-15.9); HIV-1 RNA PCR QUANT 2 LC550285 30 copies/mL (.); HIV-1 RNA PCR QUANT 3 LC550285 1.477 (.); Immature Grans 0 % (Not Estab.); Lymphocytes 44 % (Not Estab.); MCH 32.9 pg (26.6-33.0); MCHC 33.9 g/dL (31.5-35.7); MCV 97 fL (79-97); Monocytes 6 % (Not Estab.); Neutrophils 44 % (Not Estab.); Platelets 346 x10E3/uL (150-450); RBC 3.46 x10E6/uL (3.77-5.28); RDW 14.6 % (11.7-15.4); WBC 9.1 x10E3/uL (3.4-10.8)
== END ==
LOC: M PLALAB 11:18
PROVIDERS: ATTEND Internal Medicine Infectious Disease
DX: B20 Human immunodeficiency virus [HIV] disease (principal)
CPT/HCPCS: 36415; 80053; 86360; 87536; G0463

== ENCOUNTER → 2021-03-16 | Outpatient (CLI) | payer MEDICARE, MEDICAID ==
--- NOTE | 2021-03-16 10:35 | PFTRPT ---
Height: 67.00 Inches Weight: 225.00 Lbs BSA: 2.13 Diagnosis: G47.33 DATE: 03/16/2021 ORDERING PHYSICIAN: ALESSIO Sorto Study has excellent technical quality. Marked difficulty with the required maneuver is noted. Forced vital capacity is normal. FEV1 is borderline in proportion. Obstructive index is therefore borderline as well. Expiratory limit of the flow-volume loop does suggest suboptimal performance of the required maneuver. Significant variability in the expiratory limit of the flow-volume loop raises a question of upper airway resistance syndrome. There is an 18% improvement in the FEV-1 post bronchodilator but again in view of the quality of the above effort, these findings may be spurious. Total lung capacity is normal. Residual volume is in proportion. Diffusing capacity is significantly reduced but does correct for alveolar volume. Hemoglobin is acceptable at 12.8. Airway resistance and conductance are normal. IMPRESSION: Cannot rule out some degree of airway dysfunction with a diffusing capacity impairment but performance on the required maneuvers raises question of validity. Please correlate clinically. MTDD
== END ==
LOC: M CARPUL 09:41
PROVIDERS: ATTEND Nurse Practitioner Family
DX: G47.33 Obstructive sleep apnea (adult) (pediatric) (principal)

== ENCOUNTER → 2021-03-20 | Outpatient (CLI) | payer MEDICARE, MEDICAID ==
--- NOTE | 2021-03-21 19:16 | SLEEPCENT ---
DATE: 03/20/2021 ORDERED BY: ALESSIO Sorto Nocturnal polysomnography was performed for the titration of pressure therapy in this patient with obstructive sleep apnea syndrome, apnea-hypopnea index of 37.2. For testing a ResMed F30i nasal pillows device with chin strap was applied, 4 cm of water pressure were applied to the circuit, and the lights were extinguished. Eight hours and 9 minutes of data were reviewed. There were 429 minutes of sleep identified. Sleep latency was normal at 9 minutes. REM latency was mildly delayed at 112 minutes. Sleep architecture did improve with pressure therapy, particularly later in the study. Overall sleep efficiency was 89.2% and there were three REM cycles noted. The electrocardiogram showed a sinus rhythm with an average heart rate of 80 beats per minute. Rate ranged 60-100. EEG showed coarsening in background, otherwise normal waveforms for wake and sleep. Persistence of respiratory events prompted increases in pressure therapy and despite optimal mask fit and minimal air leak, the patient required a change to a bilevel device. Emergence of central apneas was seen prompting the addition of a backup rate. Best sleep was seen late in the test on a bilevel pressure of 16/10 with a backup rate of 8. Still at this pressure, respiratory patterning was identified both obstructive and central. Significant limb activity was noted as well in the EMG leads. The limb movement arousal index was only 4.5. 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 RECOMMENDATION: Initiation of bilevel pressure therapy using an inspiratory pressure of 16 over expiratory pressure of 10 with a backup rate of 8 is recommended based on these results. Close clinical followup is also suggested as the patient's condition is incompletely palliated at these pressures. cc: MD AGNES PADILLA MD
== END ==
LOC: M SLEEP 20:00
PROVIDERS: ATTEND Nurse Practitioner Family
DX: G47.33 Obstructive sleep apnea (adult) (pediatric) (principal); G47.31 Primary central sleep apnea

== ENCOUNTER → 2021-04-28 | Outpatient (CLI) | payer MEDICARE, MEDICAID ==
[~2021-04-28] MED LIST changes: +OMEP-173 PO; -OMEP-218 PO
== END ==
LOC: M LABSMTC 12:11
PROVIDERS: ATTEND Pediatrics
DX: Z11.52 Encounter for screening for COVID-19 (principal)
CPT/HCPCS: C9803; U0003

== ENCOUNTER → 2021-07-19 | Outpatient (CLI) | payer MEDICARE, MEDICAID ==
[~2021-07-19] MED LIST changes: -D31000TA2 PO; +LASI20TA3 PO; +VITA100093 PO
[2021-07-19 13:46] LABS: HEMATOCRIT 32.5 % (36.0-47.0); HEMOGLOBIN 10.8 g/dl (12.0-15.5); MEAN CORPUSCULAR HEMOGLOBIN 32.7 pg (27.0-33.0); MEAN CORPUSCULAR HGB CONC 33.2 g/dl (32.0-36.5); MEAN CORPUSCULAR VOLUME 98.5 fl (80.0-96.0); PLATELET COUNT, AUTOMATED 309 10^3/uL (150-450); WHITE BLOOD COUNT 11.9 10^3/uL (4.0-10.0)
[2021-07-19 13:52] LABS: HEMATOCRIT 32.5 % (36.0-47.0)
[2021-07-19 17:21] LABS: ALBUMIN 3.5 GM/DL (3.2-5.2); BILIRUBIN,TOTAL 0.2 MG/DL (0.2-1.0); CALCIUM LEVEL 9.2 MG/DL (8.5-10.1); CHOLESTEROL RISK RATIO 4.063 (<5); CREATININE FOR GFR 1.27 MG/DL (0.55-1.30); MAGNESIUM LEVEL 2.1 MG/DL (1.8-2.4); PERCENT SATURATION 4.9 % (13.2-45.0); PHOSPHORUS LEVEL 4.6 MG/DL (2.5-4.9); POTASSIUM SERUM 4.1 MEQ/L (3.5-5.1); THYROID STIMULATING HORMONE 3.67 uIU/ML (0.358-3.740); TOTAL PROTEIN 6.7 GM/DL (6.4-8.2)
[2021-07-20 10:57] LABS: TOTAL 25(OH) VITAMIN D 19.2 NG/ML (30.0-100.0)
[2021-07-31 19:06] LABS: VITAMIN A, RETINOL LEVEL 24.7 ug/dL (20.1-62.0); VITAMIN B1 LEVEL WHOLE BLOOD 90.5 nmol/L (66.5-200.0)
== END ==
LOC: M PLALAB 10:10
PROVIDERS: ATTEND Family Medicine
DX: E78.2 Mixed hyperlipidemia (principal); E55.9 Vitamin D deficiency, unspecified; K90.9 Intestinal malabsorption, unspecified

== ENCOUNTER → 2021-07-25 | Outpatient (REF) | payer MEDICARE, MEDICAID | LOC: M SFHCPLAZ 18:28 | PROVIDERS: ATTEND Family Medicine | DX: Z12.4 Encounter for screening for malignant neoplasm of cervix (principal); R87.618 Other abnormal cytological findings on specimens from cervix uteri; R87.810 Cervical high risk human papillomavirus (HPV) DNA test positive ==

== ENCOUNTER → 2021-07-25 | Outpatient (CLI) | payer MEDICARE, MEDICAID ==
[2021-07-25 15:43] LABS: CALCIUM LEVEL 9.1 MG/DL (8.5-10.1); CREATININE FOR GFR 1.13 MG/DL (0.55-1.30); GLOMERULAR FILTRATION RATE 52.6 (>51); POTASSIUM SERUM 4.7 MEQ/L (3.5-5.1)
== END ==
LOC: M PLALAB 13:26
PROVIDERS: ATTEND Family Medicine
DX: N18.31 Chronic kidney disease, stage 3a (principal)

== ENCOUNTER → 2021-08-22 | Outpatient (REF) | payer MEDICARE, MEDICAID | LOC: M SFHCPLAZ 17:19 | PROVIDERS: ATTEND Physician Assistant Medical | DX: L02.32 Furuncle of buttock (principal) ==

== ENCOUNTER → 2021-08-23 | Outpatient (CLI) | payer MEDICARE, MEDICAID ==
[2021-08-23 13:16] LABS: BASO % 0.4 % (0.0-1.0); EOS # 0.3 10^3/uL (0.0-0.5); EOS % 2.6 % (0.0-3.0); HEMATOCRIT 33.4 % (36.0-47.0); LYMPH # 3.7 10^3/uL (1.5-5.0); LYMPH % 35.4 % (24.0-44.0); MEAN CORPUSCULAR HEMOGLOBIN 32.6 pg (27.0-33.0); MEAN CORPUSCULAR HGB CONC 32.9 g/dl (32.0-36.5); MEAN CORPUSCULAR VOLUME 99.1 fl (80.0-96.0); MONO # 0.9 10^3/uL (0.0-0.8); MONO % 8.2 % (2.0-8.0); NEUTROPHILS # 5.6 10^3/uL (1.5-8.5); PLATELET COUNT, AUTOMATED 280 10^3/uL (150-450); RED BLOOD COUNT 3.37 10^6/uL (4.00-5.40); WHITE BLOOD COUNT 10.5 10^3/uL (4.0-10.0)
[2021-08-23 13:34] LABS: FREE T4 1.02 NG/DL (0.76-1.46); PERCENT SATURATION 7.5 % (13.2-45.0); THYROID STIMULATING HORMONE 2.27 uIU/ML (0.358-3.740)
[2021-08-26 14:26] LABS: FOLATE 3.1 NG/ML
== END ==
LOC: M PLALAB 11:12
PROVIDERS: ATTEND Internal Medicine Hematology
DX: E80.1 Porphyria cutanea tarda (principal); E07.9 Disorder of thyroid, unspecified

== ENCOUNTER → 2021-08-25 | Outpatient (CLI) | payer MEDICARE, MEDICAID ==
[2021-09-06 16:09] LABS: PORPHYRIN TOTAL PLASMA <0.1 ug/dL (0.0-1.0)
== END ==
LOC: M PLALAB 11:44
PROVIDERS: ATTEND Internal Medicine Hematology
DX: E80.1 Porphyria cutanea tarda (principal)

== ENCOUNTER → 2021-09-12 | Outpatient (CLI) | payer MEDICARE, MEDICAID | LOC: M RAD 10:09 | PROVIDERS: ATTEND Family Medicine | DX: I73.9 Peripheral vascular disease, unspecified (principal) ==

== ENCOUNTER → 2021-09-12 | Outpatient (REF) | payer MEDICARE | LOC: M SFHCPLAZ 12:57 | PROVIDERS: ATTEND Internal Medicine Hematology | DX: E80.1 Porphyria cutanea tarda (principal) ==

== ENCOUNTER → 2021-09-22 | Outpatient (REF) | payer MEDICARE, MEDICAID | LOC: M SFHCPLAZ 12:46 | PROVIDERS: ATTEND Physician Assistant | DX: R05.9 Cough, unspecified (principal) ==

== ENCOUNTER → 2021-09-28 | Outpatient (CLI) | payer MEDICARE, MEDICAID | LOC: M RAD 10:31 | PROVIDERS: ATTEND Physician Assistant | DX: Z12.2 Encounter for screening for malignant neoplasm of respiratory organs (principal); F17.218 Nicotine dependence, cigarettes, with other nicotine-induced disorders ==

== ENCOUNTER → 2021-12-16 | Outpatient (CLI) | payer MEDICARE, MEDICAID ==
[2021-12-16 16:52] LABS: ALBUMIN 3.4 GM/DL (3.2-5.2); BILIRUBIN,TOTAL 0.3 MG/DL (0.2-1.0); CALCIUM LEVEL 9.1 MG/DL (8.5-10.1); CREATININE FOR GFR 1.25 MG/DL (0.55-1.30); GLOMERULAR FILTRATION RATE 46.7 (>51); POTASSIUM SERUM 4.2 MEQ/L (3.5-5.1)
[2021-12-20 02:07] LABS: % CD8 Pos Lymph 50.1 % (12.0-35.5); ABS Basophils 0.1 x10E3/uL (0.0-0.2); ABS Eosinophils 0.5 x10E3/uL (0.0-0.4); ABS Lymphs 4.8 x10E3/uL (0.7-3.1); ABS Monocytes 0.6 x10E3/uL (0.1-0.9); ABS Neutophils 4.6 x10E3/uL (1.4-7.0); Abs CD4 Helper 1920 /uL (359-1519); Abs CD8 Suppres 2405 /uL (109-897); Eosinophils 4 % (Not Estab.); HCT 34.8 % (34.0-46.6); HIV-1 RNA PCR QUANT 2 LC550285 <20 copies/mL (.); Immature Grans 0 % (Not Estab.); Lymphocytes 45 % (Not Estab.); MCH 29.7 pg (26.6-33.0); MCHC 31.6 g/dL (31.5-35.7); MCV 94 fL (79-97); Monocytes 6 % (Not Estab.); Neutrophils 44 % (Not Estab.); Platelets 271 x10E3/uL (150-450); RDW 14.4 % (11.7-15.4); WBC 10.5 x10E3/uL (3.4-10.8)
== END ==
LOC: M PLALAB 12:30
PROVIDERS: ATTEND Internal Medicine Infectious Disease
DX: B20 Human immunodeficiency virus [HIV] disease (principal)

== ENCOUNTER → 2021-12-16 | Outpatient (CLI) | payer MEDICARE, MEDICAID ==
[2021-12-16 16:00] LABS: BASO % 0.4 % (0.0-1.0); EOS # 0.5 10^3/uL (0.0-0.5); EOS % 4.8 % (0.0-3.0); HEMATOCRIT 33.8 % (36.0-47.0); HEMOGLOBIN 10.7 g/dl (12.0-15.5); LYMPH # 4.4 10^3/uL (1.5-5.0); MEAN CORPUSCULAR HEMOGLOBIN 30.5 pg (27.0-33.0); MEAN CORPUSCULAR HGB CONC 31.7 g/dl (32.0-36.5); MEAN CORPUSCULAR VOLUME 96.3 fl (80.0-96.0); MONO # 0.7 10^3/uL (0.0-0.8); MONO % 6.3 % (2.0-8.0); NEUTROPHILS # 4.6 10^3/uL (1.5-8.5); NEUTROPHILS % 45.3 % (36.0-66.0); PLATELET COUNT, AUTOMATED 251 10^3/uL (150-450); RED BLOOD COUNT 3.51 10^6/uL (4.00-5.40); WHITE BLOOD COUNT 10.3 10^3/uL (4.0-10.0)
[2021-12-16 16:52] LABS: PERCENT SATURATION 17.6 % (13.2-45.0)
== END ==
LOC: M PLALAB 12:32
PROVIDERS: ATTEND Internal Medicine Hematology
DX: D52.8 Other folate deficiency anemias (principal)

== ENCOUNTER → 2022-05-16 | Outpatient (CLI) | payer MEDICARE, MEDICAID ==
[~2022-05-16] MED LIST changes: +CLOP75TA99 PO; -PLAV1TAB2 PO
[2022-05-16 16:22] LABS: FERRITIN 16.5 NG/ML (7.3-270.7); TOTAL 25(OH) VITAMIN D 29.1 NG/ML (20.0-100.0)
[2022-05-16 16:23] LABS: HEMATOCRIT 38.5 % (36.0-47.0); HEMOGLOBIN 12.5 g/dl (12.0-15.5); MEAN CORPUSCULAR HGB CONC 32.5 g/dl (32.0-36.5); MEAN CORPUSCULAR VOLUME 101.6 fl (80.0-96.0); PLATELET COUNT, AUTOMATED 284 10^3/uL (150-450); RED BLOOD COUNT 3.79 10^6/uL (4.00-5.40); WHITE BLOOD COUNT 10.7 10^3/uL (4.0-10.0)
== END ==
LOC: M PLALAB 10:23
PROVIDERS: ATTEND Internal Medicine Hematology
DX: D50.8 Other iron deficiency anemias (principal); D63.8 Anemia in other chronic diseases classified elsewhere; Z79.899 Other long term (current) drug therapy

== ENCOUNTER → 2022-06-15 | Outpatient (CLI) | payer MEDICARE, MEDICAID ==
[2022-06-15 16:33] LABS: ALBUMIN 3.2 G/DL (3.2-5.2); ALKALINE PHOSPHATASE 90 U/L (46-116); ALT/SGPT < 9 U/L (7.0-40); AST/SGOT 13 U/L (<34); BILIRUBIN,TOTAL 0.3 MG/DL (0.3-1.2); BLOOD UREA NITROGEN 13 MG/DL (9-23); CALCIUM LEVEL 8.4 MG/DL (8.5-10.1); CARBON DIOXIDE LEVEL 28 MMOL/L (20-31); CHLORIDE LEVEL 107 MMOL/L (98-107); CREATININE FOR GFR 1.13 MG/DL (0.55-1.30); GLOMERULAR FILTRATION RATE 52.5 (>51); GLUCOSE, FASTING 82 MG/DL (60-100); POTASSIUM SERUM 4.6 MMOL/L (3.5-5.1); SODIUM LEVEL 141 MMOL/L (136-145); TOTAL PROTEIN 6.2 G/DL (5.7-8.2)
[2022-06-19 14:08] LABS: % CD8 Pos Lymph 45.8 % (12.0-35.5); %CD4 Pos Lymphs 41.2 % (30.8-58.5); ABS Basophils 0.1 x10E3/uL (0.0-0.2); ABS Eosinophils 0.5 x10E3/uL (0.0-0.4); ABS Lymphs 4.7 x10E3/uL (0.7-3.1); ABS Monocytes 0.8 x10E3/uL (0.1-0.9); ABS Neutophils 5.8 x10E3/uL (1.4-7.0); Abs CD4 Helper 1936 /uL (359-1519); Abs CD8 Suppres 2153 /uL (109-897); Eosinophils 5 % (Not Estab.); HCT 34.5 % (34.0-46.6); HGB 11.2 g/dL (11.1-15.9); HIV-1 RNA PCR QUANT 2 LC550285 50 copies/mL (.); HIV-1 RNA PCR QUANT 3 LC550285 1.699 (.); Imm ABS Grans 0.1 x10E3/uL (0.0-0.1); Immature Grans 1 % (Not Estab.); Lymphocytes 39 % (Not Estab.); MCH 32.4 pg (26.6-33.0); MCHC 32.5 g/dL (31.5-35.7); MCV 100 fL (79-97); Monocytes 6 % (Not Estab.); Neutrophils 49 % (Not Estab.); Platelets 282 x10E3/uL (150-450); RBC 3.46 x10E6/uL (3.77-5.28); RDW 15.2 % (11.7-15.4); WBC 11.9 x10E3/uL (3.4-10.8)
== END ==
LOC: M PLALAB 13:36
PROVIDERS: ATTEND Internal Medicine Infectious Disease
DX: B20 Human immunodeficiency virus [HIV] disease (principal)

== ENCOUNTER → 2022-06-20 | Outpatient (POV) | payer MEDICARE, MEDICAID ==
[~2022-06-20] VITALS: Ht 170.2 cm; Wt 112.7 kg
[2022-06-20 09:35] VITALS: BP 133/77
== END ==
LOC: M IRPOV 09:25
PROVIDERS: ATTEND Radiology Diagnostic Radiology
DX: I70.211 Atherosclerosis of native arteries of extremities with intermittent claudication, right leg (principal); I70.221 Atherosclerosis of native arteries of extremities with rest pain, right leg; F17.210 Nicotine dependence, cigarettes, uncomplicated; Z79.01 Long term (current) use of anticoagulants; Z79.899 Other long term (current) drug therapy; Z88.6 Allergy status to analgesic agent; Z95.828 Presence of other vascular implants and grafts

== ENCOUNTER → 2022-07-05 | Outpatient (CLI) | payer MEDICARE, MEDICAID ==
[~2022-07-05] MED LIST changes: +ISOVUE-370 76% 100ML VIAL As Ordered ONE
== END ==
LOC: M RAD 15:01
PROVIDERS: ATTEND Radiology Diagnostic Radiology
DX: I83.90 Asymptomatic varicose veins of unspecified lower extremity (principal)
CPT/HCPCS: 75635; Q9967

== ENCOUNTER → 2022-07-18 | Outpatient (CLI) | payer MEDICARE, MEDICAID | LOC: M RAD 10:50 | PROVIDERS: ATTEND Radiology Diagnostic Radiology | DX: I73.9 Peripheral vascular disease, unspecified (principal) | CPT/HCPCS: 75635; Q9967 ==

== ENCOUNTER → 2022-07-26 | Outpatient (CLI) | payer MEDICARE, MEDICAID ==
[~2022-07-26] MED LIST changes: -ISOVUE-370 76% 100ML VIAL As Ordered ONE
== END ==
LOC: M RAD 09:36
PROVIDERS: ATTEND Radiology Diagnostic Radiology
DX: I83.899 Varicose veins of unspecified lower extremity with other complications (principal); R60.9 Edema, unspecified

== ENCOUNTER → 2022-08-01 | Outpatient (POV) | payer MEDICARE, MEDICAID ==
[~2022-08-01] VITALS: Ht 170.2 cm; Wt 116.8 kg
[2022-08-01 14:55] VITALS: BP 131/78
== END ==
LOC: M IRPOV 14:50
PROVIDERS: ATTEND Radiology Diagnostic Radiology
DX: I70.213 Atherosclerosis of native arteries of extremities with intermittent claudication, bilateral legs (principal); I83.813 Varicose veins of bilateral lower extremities with pain; I87.2 Venous insufficiency (chronic) (peripheral); Z88.6 Allergy status to analgesic agent; Z95.828 Presence of other vascular implants and grafts

== ENCOUNTER → 2022-08-09 | Outpatient (CLI) | payer MEDICARE, MEDICAID | LOC: M RAD 15:38 | PROVIDERS: ATTEND Physician Assistant | DX: R19.00 Intra-abdominal and pelvic swelling, mass and lump, unspecified site (principal) ==

== ENCOUNTER → 2022-08-16 | Outpatient (REF) | payer MEDICARE, MEDICAID | LOC: M SFHCPLAZ 13:16 | PROVIDERS: ATTEND Physician Assistant | DX: Z12.4 Encounter for screening for malignant neoplasm of cervix (principal) ==

== ENCOUNTER → 2022-08-18 | Outpatient (CLI) | payer MEDICARE, MEDICAID | LOC: M RAD 17:28 | PROVIDERS: ATTEND Nurse Practitioner Family | DX: R91.8 Other nonspecific abnormal finding of lung field (principal) ==

== ENCOUNTER → 2022-08-28 | Outpatient (CLI) | payer MEDICARE, MEDICAID ==
[~2022-08-28] MED LIST changes: +LIDOCAINE 1% MDV 20ML VIAL As Ordered ONE; +LIDOCAINE 2% MDV 20ML VIAL As Ordered ONE; +MIDAZOLAM INJ 2MG/2ML VIAL As Ordered ONE; +diphenhydrAMINE 50MG/ML VIAL As Ordered ONE; +fentaNYL 100 MCG/2 ML INJECTION As Ordered ONE
[2022-08-28 11:10] VITALS: BP 103/56
== END ==
LOC: M IRPRO 06:39
PROVIDERS: ATTEND Radiology Diagnostic Radiology
DX: I83.11 Varicose veins of right lower extremity with inflammation (principal); Z88.6 Allergy status to analgesic agent
CPT/HCPCS: 36478; 99152; 99153; J1200; J2250; J3010

== ENCOUNTER → 2022-09-05 | Outpatient (CLI) | payer MEDICARE, MEDICAID ==
[~2022-09-05] MED LIST changes: -LIDOCAINE 1% MDV 20ML VIAL As Ordered ONE; -LIDOCAINE 2% MDV 20ML VIAL As Ordered ONE; -MIDAZOLAM INJ 2MG/2ML VIAL As Ordered ONE; -diphenhydrAMINE 50MG/ML VIAL As Ordered ONE; -fentaNYL 100 MCG/2 ML INJECTION As Ordered ONE
== END ==
LOC: M RAD 10:33
PROVIDERS: ATTEND Radiology Diagnostic Radiology
DX: M79.89 Other specified soft tissue disorders (principal)

== ENCOUNTER → 2022-09-12 | Outpatient (CLI) | payer MEDICARE, MEDICAID | LOC: M WHC 11:31 | PROVIDERS: ATTEND Physician Assistant | DX: N94.89 Other specified conditions associated with female genital organs and menstrual cycle (principal) ==

== ENCOUNTER → 2022-09-12 | Outpatient (CLI) | payer MEDICARE, MEDICAID | LOC: M RAD 15:07 | PROVIDERS: ATTEND Radiology Diagnostic Radiology | DX: I82.811 Embolism and thrombosis of superficial veins of right lower extremity (principal) ==

== ENCOUNTER 2022-10-02 15:11 | Emergency (ER) | payer MEDICARE, MEDICAID ==
[~2022-10-02] VITALS: Ht 170.2 cm; Wt 100.4 kg
[2022-10-02] MEDS ORDERED: predniSONE 20 MG TAB PO ONE (21:05)
[2022-10-02] MEDS ORDERED: MEDR4PAK PO (21:06)
[2022-10-02 21:16] VITALS: BP 139/74; TEMP 97.6; O2SAT 100
== END 2022-10-02 21:26 | disposition home or self-care (01) ==
LOC: M ED 15:11
DX: M54.31 Sciatica, right side (principal); I73.9 Peripheral vascular disease, unspecified; J44.9 Chronic obstructive pulmonary disease, unspecified; Z86.73 Personal history of transient ischemic attack (TIA), and cerebral infarction without residual deficits; I47.1 Supraventricular tachycardia; E78.5 Hyperlipidemia, unspecified; G43.909 Migraine, unspecified, not intractable, without status migrainosus; B20 Human immunodeficiency virus [HIV] disease; B00.9 Herpesviral infection, unspecified; F17.200 Nicotine dependence, unspecified, uncomplicated; Z88.6 Allergy status to analgesic agent; Z79.51 Long term (current) use of inhaled steroids; Z79.899 Other long term (current) drug therapy
CPT/HCPCS: 72110; 73502; 99283; J7512

== ENCOUNTER → 2022-10-06 | Outpatient (CLI) | payer MEDICARE, MEDICAID ==
[~2022-10-06] MED LIST changes: +GASTROGRAFIN SOLUTION 30ML As Ordered ONE; +ISOVUE-370 76% 100ML VIAL As Ordered ONE; +MEDR4PAK PO
== END ==
LOC: M RAD 12:29
PROVIDERS: ATTEND Physician Assistant
DX: N94.89 Other specified conditions associated with female genital organs and menstrual cycle (principal)
CPT/HCPCS: 74177; Q9963; Q9967

== ENCOUNTER → 2022-10-31 | Outpatient (CLI) | payer MEDICARE, MEDICAID ==
[~2022-10-31] MED LIST changes: -GASTROGRAFIN SOLUTION 30ML As Ordered ONE; +HYDR-3713 PO; -ISOVUE-370 76% 100ML VIAL As Ordered ONE
== END ==
LOC: M RAD 14:54
PROVIDERS: ATTEND Internal Medicine Hematology
DX: R60.0 Localized edema (principal)

== ENCOUNTER → 2022-11-01 | Outpatient (CLI) | payer MEDICARE, MEDICAID ==
[~2022-11-01] MED LIST changes: -HYDR-3713 PO
[2022-11-01 13:52] LABS: MEAN CORPUSCULAR HEMOGLOBIN 31.9 pg (27.0-33.0); MEAN CORPUSCULAR HGB CONC 32.4 g/dl (32.0-36.5); MEAN CORPUSCULAR VOLUME 98.6 fl (80.0-96.0); PLATELET COUNT, AUTOMATED 349 10^3/uL (150-450); RED BLOOD COUNT 3.45 10^6/uL (4.00-5.40); WHITE BLOOD COUNT 9.2 10^3/uL (4.0-10.0)
[2022-11-01 14:17] LABS: HEMOGLOBIN A1c 5.5 % (4.0-6.0)
[2022-11-01 14:26] LABS: CREATININE, URINE 125.5 MG/DL
[2022-11-01 14:27] LABS: MAU/CREAT RATIO 3.9 MCG/MG (0.0-30.0)
[2022-11-01 14:32] LABS: ALBUMIN 3.1 G/DL (3.2-5.2); ALKALINE PHOSPHATASE 80 U/L (46-116); ALT/SGPT 10 U/L (7.0-40); AST/SGOT < 8 U/L (<34); BILIRUBIN,TOTAL 0.4 MG/DL (0.3-1.2); BLOOD UREA NITROGEN 13 MG/DL (9-23); CALCIUM LEVEL 9.4 MG/DL (8.5-10.1); CARBON DIOXIDE LEVEL 26 MMOL/L (20-31); CHLORIDE LEVEL 107 MMOL/L (98-107); CHOLESTEROL LEVEL 224 MG/DL (<200); CHOLESTEROL RISK RATIO 7.22 (<5); CREATININE FOR GFR 0.87 MG/DL (0.55-1.30); FREE T4 0.96 NG/DL (0.89-1.76); GLOMERULAR FILTRATION RATE > 60.0 (>51); GLUCOSE, FASTING 85 MG/DL (60-100); LDL CHOLESTEROL 134.6 MG/DL (<100); POTASSIUM SERUM 4.5 MMOL/L (3.5-5.1); SODIUM LEVEL 142 MMOL/L (136-145); TOTAL 25(OH) VITAMIN D 26.3 NG/ML (20.0-100.0); TOTAL PROTEIN 6.4 G/DL (5.7-8.2); TRIGLYCERIDES LEVEL 292 MG/DL (<150); VITAMIN B12 LEVEL 229 PG/ML (211-911)
== END ==
LOC: M PLALAB 11:31
PROVIDERS: ATTEND Internal Medicine Hematology
DX: E78.2 Mixed hyperlipidemia (principal)

== ENCOUNTER → 2022-11-03 | Outpatient (CLI) | payer MEDICARE, MEDICAID | LOC: M PLALAB 11:33 | PROVIDERS: ATTEND Internal Medicine Hematology | DX: I80.9 Phlebitis and thrombophlebitis of unspecified site (principal) ==

== ENCOUNTER 2022-11-09 16:24 | Emergency (ER) | payer MEDICARE, MEDICAID ==
[~2022-11-09] VITALS: Ht 170.2 cm; Wt 103.6 kg
[2022-11-09] MEDS ORDERED: NORCO, ANEXSIA 5/325MG TABLET (HYDROcodone/ACETAMINOPHEN) PO ONE (21:20)
[2022-11-09] MEDS ORDERED: NORCO 5/325MG TABLET (HOME DOSE PACK) PO ONE (23:45)
[2022-11-09] MEDS ORDERED: HYDR-3713 PO (23:51)
[2022-11-10 00:15] VITALS: BP 130/76; TEMP 98; O2SAT 97
== END 2022-11-10 00:17 | disposition home or self-care (01) ==
LOC: M ED 16:24
DX: I82.811 Embolism and thrombosis of superficial veins of right lower extremity (principal); M79.604 Pain in right leg; J44.9 Chronic obstructive pulmonary disease, unspecified; K21.9 Gastro-esophageal reflux disease without esophagitis; Z86.73 Personal history of transient ischemic attack (TIA), and cerebral infarction without residual deficits; B20 Human immunodeficiency virus [HIV] disease; B00.9 Herpesviral infection, unspecified; Z98.84 Bariatric surgery status; Z88.6 Allergy status to analgesic agent; Z79.899 Other long term (current) drug therapy; Z79.51 Long term (current) use of inhaled steroids; Z79.52 Long term (current) use of systemic steroids

== ENCOUNTER → 2022-12-01 | Outpatient (CLI) | payer MEDICARE, MEDICAID ==
[~2022-12-01] MED LIST changes: +HYDR-3713 PO
== END ==
LOC: M SOG 07:56
PROVIDERS: ATTEND Orthopaedic Surgery
DX: M17.11 Unilateral primary osteoarthritis, right knee (principal)

== ENCOUNTER → 2022-12-19 | Outpatient (CLI) | payer MEDICARE, MEDICAID ==
[2022-12-19 16:12] LABS: ALKALINE PHOSPHATASE 72 U/L (46-116); ALT/SGPT 11 U/L (7.0-40); AST/SGOT < 8 U/L (<34); BILIRUBIN,TOTAL 0.2 MG/DL (0.3-1.2); BLOOD UREA NITROGEN 12 MG/DL (9-23); CALCIUM LEVEL 8.9 MG/DL (8.3-10.6); CARBON DIOXIDE LEVEL 29 MMOL/L (20-31); CHLORIDE LEVEL 105 MMOL/L (98-107); CREATININE FOR GFR 1.12 MG/DL (0.55-1.30); GLOMERULAR FILTRATION RATE 52.8 (>45); GLUCOSE, FASTING 83 MG/DL (74-106); SODIUM LEVEL 139 MMOL/L (136-145); TOTAL PROTEIN 6.2 G/DL (5.7-8.2)
[2022-12-22 02:07] LABS: % CD8 Pos Lymph 49.4 % (12.0-35.5); %CD4 Pos Lymphs 37.3 % (30.8-58.5); ABS Eosinophils 0.5 x10E3/uL (0.0-0.4); ABS Lymphs 4.5 x10E3/uL (0.7-3.1); ABS Monocytes 0.6 x10E3/uL (0.1-0.9); ABS Neutophils 5.7 x10E3/uL (1.4-7.0); Abs CD4 Helper 1679 /uL (359-1519); Abs CD8 Suppres 2223 /uL (109-897); CD4/CD8 Ratio 0.76 (0.92-3.72); Eosinophils 4 % (Not Estab.); HCT 35.3 % (34.0-46.6); HGB 11.2 g/dL (11.1-15.9); HIV-1 RNA PCR QUANT 2 LC550285 <20 copies/mL (.); Immature Grans 0 % (Not Estab.); Lymphocytes 40 % (Not Estab.); MCH 32.7 pg (26.6-33.0); MCHC 31.7 g/dL (31.5-35.7); MCV 103 fL (79-97); Monocytes 6 % (Not Estab.); Neutrophils 50 % (Not Estab.); Platelets 310 x10E3/uL (150-450); RBC 3.43 x10E6/uL (3.77-5.28); RDW 14.6 % (11.7-15.4); WBC 11.4 x10E3/uL (3.4-10.8)
== END ==
LOC: M PLALAB 11:39
PROVIDERS: ATTEND Internal Medicine Infectious Disease
DX: B20 Human immunodeficiency virus [HIV] disease (principal)

== ENCOUNTER → 2023-03-06 | Outpatient (CLI) | payer MEDICARE, MEDICAID | LOC: M PLAIMG 11:17 | PROVIDERS: ATTEND Nurse Practitioner Family | DX: J44.9 Chronic obstructive pulmonary disease, unspecified (principal) ==

== ENCOUNTER → 2023-04-16 | Outpatient (REF) | payer MEDICARE, MEDICAID | LOC: M LAB REF 13:07 | PROVIDERS: ATTEND Nurse Practitioner Family | DX: J44.9 Chronic obstructive pulmonary disease, unspecified (principal) ==

== ENCOUNTER → 2023-07-12 | Outpatient (CLI) | payer MEDICARE, MEDICAID ==
[2023-07-12 16:50] LABS: ALBUMIN 3.7 G/DL (3.2-5.2); BILIRUBIN,TOTAL 0.2 MG/DL (0.3-1.2); CALCIUM LEVEL 9.3 MG/DL (8.3-10.6); CHOLESTEROL RISK RATIO 4.44 (<5); CREATININE FOR GFR 1.32 MG/DL (0.55-1.30); GLOMERULAR FILTRATION RATE 43.7 (>45); HDL CHOLESTEROL 38.9 MG/DL (>40); LDL CHOLESTEROL 90.7 MG/DL (<100); NON-HDL-C 134.1 MG/DL; POTASSIUM SERUM 4.4 MMOL/L (3.5-5.1); TOTAL PROTEIN 6.9 G/DL (5.7-8.2)
== END ==
LOC: M PLALAB 12:55
PROVIDERS: ATTEND Internal Medicine Infectious Disease
DX: B20 Human immunodeficiency virus [HIV] disease (principal); E78.00 Pure hypercholesterolemia, unspecified; Z79.899 Other long term (current) drug therapy

== ENCOUNTER → 2023-12-17 | Outpatient (CLI) | payer MEDICARE, MEDICAID ==
[~2023-12-17] MED LIST changes: +DOXY-323 PO; -DOXY-443 PO; +GABA-1490 PO; -GABA600T4 PO
[2023-12-17 15:51] LABS: BASO % 0.4 % (0.0-1.0); EOS # 0.5 10^3/uL (0.0-0.5); EOS % 4.8 % (0.0-3.0); HEMATOCRIT 34.4 % (36.0-47.0); HEMOGLOBIN 11.1 g/dl (12.0-15.5); LYMPH # 4.5 10^3/uL (1.5-5.0); LYMPH % 43.8 % (24.0-44.0); MEAN CORPUSCULAR HEMOGLOBIN 31.9 pg (27.0-33.0); MEAN CORPUSCULAR HGB CONC 32.3 g/dl (32.0-36.5); MEAN CORPUSCULAR VOLUME 98.9 fl (80.0-96.0); MONO # 0.8 10^3/uL (0.0-0.8); NEUTROPHILS # 4.3 10^3/uL (1.5-8.5); NEUTROPHILS % 42.6 % (36.0-66.0); PLATELET COUNT, AUTOMATED 294 10^3/uL (150-450); RED BLOOD COUNT 3.48 10^6/uL (4.00-5.40); WHITE BLOOD COUNT 10.2 10^3/uL (4.0-10.0)
[2023-12-17 15:59] LABS: HEMOGLOBIN A1c 5.2 % (4.0-6.0)
[2023-12-17 16:07] LABS: C REACTIVE PROTEIN QUANTITATIV 0.5 MG/DL (<1.0)
[2023-12-17 16:09] LABS: ALBUMIN 3.7 G/DL (3.2-5.2); BILIRUBIN,TOTAL 0.4 MG/DL (0.3-1.2); CHOLESTEROL RISK RATIO 5.12 (<5); CREATININE FOR GFR 1.24 MG/DL (0.55-1.30); GLOMERULAR FILTRATION RATE 46.8 (>45); HDL CHOLESTEROL 30.8 MG/DL (>40); NON-HDL-C 127.2 MG/DL; POTASSIUM SERUM 4.3 MMOL/L (3.5-5.1); TOTAL PROTEIN 6.9 G/DL (5.7-8.2)
[2023-12-17 16:12] LABS: FREE T4 0.93 NG/DL (0.89-1.76); THYROID STIMULATING HORMONE 1.49 uIU/ML (0.55-4.78)
[2023-12-17 16:13] LABS: FERRITIN 24.9 NG/ML (7.3-270.7)
[2023-12-17 16:14] LABS: TOTAL 25(OH) VITAMIN D 36.5 NG/ML (20.0-100.0)
[2023-12-17 16:19] LABS: CREATININE, URINE 246.9 MG/DL; MAU/CREAT RATIO 1.6 MCG/MG (0.0-30.0)
== END ==
LOC: M PLALAB 13:35
PROVIDERS: ATTEND Internal Medicine Hematology
DX: E78.2 Mixed hyperlipidemia (principal); E53.8 Deficiency of other specified B group vitamins; Z79.899 Other long term (current) drug therapy

== ENCOUNTER → 2024-01-10 | Outpatient (CLI) | payer MEDICARE, MEDICAID ==
[~2024-01-10] MED LIST changes: -DOXY-323 PO; +DOXY-441 PO
[2024-01-11 13:07] LABS: % CD4+ LYMPHS 41.7 % (30.8-58.5); ABSOLUTE CD4 HELPER 2043 /uL (359-1519); BASOPHILS 1 % (Not Estab.); BASOPHILS ABSOLUTE 0.1 x10E3/uL (0.0-0.2); EOSINOPHILS 4 % (Not Estab.); EOSINOPHILS ABSOLUTE 0.4 x10E3/uL (0.0-0.4); HCT 33.6 % (34.0-46.6); HGB 10.8 g/dL (11.1-15.9); LYMPHOCYTES 43 % (Not Estab.); LYMPHOCYTES ABSOLUTE 4.9 x10E3/uL (0.7-3.1); MCH 32.1 pg (26.6-33.0); MCHC 32.1 g/dL (31.5-35.7); MCV 100 fL (79-97); MONOCYTES 6 % (Not Estab.); MONOCYTES ABSOLUTE 0.7 x10E3/uL (0.1-0.9); NEUTROPHILS 46 % (Not Estab.); NEUTROPHILS ABSOLUTE 5.4 x10E3/uL (1.4-7.0); PLT 285 x10E3/uL (150-450); RBC 3.36 x10E6/uL (3.77-5.28); RDW 15.3 % (11.7-15.4); WBC 11.5 x10E3/uL (3.4-10.8)
== END ==
LOC: M PLALAB 12:22
PROVIDERS: ATTEND Internal Medicine Infectious Disease
DX: B20 Human immunodeficiency virus [HIV] disease (principal)

== ENCOUNTER 2024-03-28 09:36 | Day surgery (SDC) | payer MEDICARE, MEDICAID ==
[~2024-03-28] VITALS: Ht 170.2 cm; Wt 89.1 kg
[~2024-03-28 09:36] MED LIST changes: +ARNU1INH3 INH; +MOME13HF5 INH; +[UNRECOGNIZED DRUG - CODE] PO
[2024-03-28] MEDS ORDERED: propofoL 200 MG/20 ML VIAL As Ordered ONE (10:17)
[2024-03-28 11:40] VITALS: TEMP 97.9
[2024-03-28 11:55] VITALS: BP 115/61; O2SAT 95
== END 2024-03-28 12:00 | disposition home or self-care (01) ==
LOC: M OPP 09:36
PROVIDERS: ATTEND Surgery
DX: Z12.11 Encounter for screening for malignant neoplasm of colon (principal); D12.0 Benign neoplasm of cecum; D12.2 Benign neoplasm of ascending colon; K57.30 Diverticulosis of large intestine without perforation or abscess without bleeding; B07.9 Viral wart, unspecified; I25.10 Atherosclerotic heart disease of native coronary artery without angina pectoris; E78.00 Pure hypercholesterolemia, unspecified; K21.9 Gastro-esophageal reflux disease without esophagitis; M19.90 Unspecified osteoarthritis, unspecified site; F41.9 Anxiety disorder, unspecified; F32.A Depression, unspecified; F17.210 Nicotine dependence, cigarettes, uncomplicated; J45.909 Unspecified asthma, uncomplicated; J44.9 Chronic obstructive pulmonary disease, unspecified; G47.30 Sleep apnea, unspecified; I73.9 Peripheral vascular disease, unspecified; Z86.73 Personal history of transient ischemic attack (TIA), and cerebral infarction without residual deficits; Z98.84 Bariatric surgery status; Z88.6 Allergy status to analgesic agent; Z79.51 Long term (current) use of inhaled steroids; Z79.899 Other long term (current) drug therapy

== ENCOUNTER → 2024-04-24 | Outpatient (CLI) | payer MEDICARE, MEDICAID | LOC: M RAD 13:26 | PROVIDERS: ATTEND Nurse Practitioner Family | DX: Z87.891 Personal history of nicotine dependence (principal) ==

== ENCOUNTER → 2024-05-12 | Outpatient (REF) | payer MEDICARE, MEDICAID | LOC: M SFHCPLAZ 09:43 | PROVIDERS: ATTEND Physician Assistant Medical | DX: J06.9 Acute upper respiratory infection, unspecified (principal) ==

== ENCOUNTER → 2024-05-14 | Outpatient (CLI) | payer MEDICARE, MEDICAID | LOC: M PLAIMG 09:08 | PROVIDERS: ATTEND Physician Assistant Medical | DX: J06.9 Acute upper respiratory infection, unspecified (principal) ==

== ENCOUNTER → 2024-06-24 | Outpatient (CLI) | payer MEDICARE, MEDICAID ==
[2024-06-24 16:02] LABS: HEMATOCRIT 37.7 % (36.0-47.0); MEAN CORPUSCULAR HEMOGLOBIN 33.3 pg (27.0-33.0); MEAN CORPUSCULAR HGB CONC 31.8 g/dl (32.0-36.5); MEAN CORPUSCULAR VOLUME 104.7 fl (80.0-96.0); PLATELET COUNT, AUTOMATED 284 10^3/uL (150-450); WHITE BLOOD COUNT 16.5 10^3/uL (4.0-10.0)
[2024-06-24 16:32] LABS: ALBUMIN 3.5 G/DL (3.2-5.2); BILIRUBIN,TOTAL 0.4 MG/DL (0.3-1.2); CALCIUM LEVEL 9.3 MG/DL (8.3-10.6); CREATININE FOR GFR 1.24 MG/DL (0.55-1.30); GLOMERULAR FILTRATION RATE 46.8 (>45); POTASSIUM SERUM 4.4 MMOL/L (3.5-5.1); TOTAL PROTEIN 6.8 G/DL (5.7-8.2)
[2024-06-24 16:35] LABS: FREE T4 0.89 NG/DL (0.89-1.76); THYROID STIMULATING HORMONE 1.828 uIU/ML (0.55-4.78)
== END ==
LOC: M PLALAB 12:45
PROVIDERS: ATTEND Physician Assistant Medical
DX: R22.9 Localized swelling, mass and lump, unspecified (principal); E07.9 Disorder of thyroid, unspecified

== ENCOUNTER → 2024-06-25 | Outpatient (REF) | payer MEDICARE, MEDICAID | LOC: M SFHCPLAZ 17:19 | PROVIDERS: ATTEND Physician Assistant Medical | DX: D72.829 Elevated white blood cell count, unspecified (principal); Z53.9 Procedure and treatment not carried out, unspecified reason ==

== ENCOUNTER → 2024-06-26 | Outpatient (CLI) | payer MEDICARE, MEDICAID ==
[2024-06-26 11:23] LABS: BASO # 0.1 10^3/uL (0.0-0.2); BASO % 0.4 % (0.0-1.0); EOS # 0.2 10^3/uL (0.0-0.5); EOS % 1.2 % (0.0-3.0); HEMATOCRIT 40.6 % (36.0-47.0); HEMOGLOBIN 12.9 g/dl (12.0-15.5); LYMPH # 4.8 10^3/uL (1.5-5.0); LYMPH % 34.6 % (24.0-44.0); MEAN CORPUSCULAR HEMOGLOBIN 33.2 pg (27.0-33.0); MEAN CORPUSCULAR HGB CONC 31.8 g/dl (32.0-36.5); MEAN CORPUSCULAR VOLUME 104.4 fl (80.0-96.0); MONO % 7.4 % (2.0-8.0); NEUTROPHILS # 7.6 10^3/uL (1.5-8.5); NEUTROPHILS % 55.3 % (36.0-66.0); PLATELET COUNT, AUTOMATED 249 10^3/uL (150-450); RED BLOOD COUNT 3.89 10^6/uL (4.00-5.40); WHITE BLOOD COUNT 13.8 10^3/uL (4.0-10.0)
[2024-06-26 11:33] LABS: ERYTHROCYTE SEDIMENTATION RATE 47 mm/hr (0-30)
[2024-06-26 11:53] LABS: C REACTIVE PROTEIN QUANTITATIV < 0.50 MG/DL (<1.0)
[2024-06-26 12:00] LABS: PROCALCITONIN <0.04 ng/ml
== END ==
LOC: M LAB 10:38
PROVIDERS: ATTEND Physician Assistant Medical
DX: D72.829 Elevated white blood cell count, unspecified (principal)

== ENCOUNTER → 2024-07-15 | Outpatient (CLI) | payer MEDICARE, MEDICAID ==
[2024-07-15 15:03] LABS: CHOLESTEROL RISK RATIO 3.88 (<5); HDL CHOLESTEROL 48.7 MG/DL (>40); LDL CHOLESTEROL 96.7 MG/DL (<100); NON-HDL-C 140.3 MG/DL
== END ==
LOC: M PLALAB 10:52
PROVIDERS: ATTEND Internal Medicine Infectious Disease
DX: E78.2 Mixed hyperlipidemia (principal); B20 Human immunodeficiency virus [HIV] disease

== ENCOUNTER → 2024-07-29 | Outpatient (CLI) | payer MEDICARE, MEDICAID | LOC: M RAD 12:37 | PROVIDERS: ATTEND Physician Assistant Medical | DX: R22.9 Localized swelling, mass and lump, unspecified (principal) ==

== ENCOUNTER → 2024-07-31 | Outpatient (CLI) | payer MEDICARE, MEDICAID | LOC: M RAD 13:36 | PROVIDERS: ATTEND Internal Medicine Infectious Disease | DX: I73.9 Peripheral vascular disease, unspecified (principal) ==

== ENCOUNTER → 2024-10-01 | Outpatient (CLI) | payer MEDICARE, MEDICAID ==
[~2024-10-01] MED LIST changes: +PRED10TA2 PO
[2024-10-01 10:48] LABS: BASO # 0.1 10^3/uL (0.0-0.2); BASO % 0.4 % (0.0-1.0); EOS # 0.5 10^3/uL (0.0-0.5); EOS % 4.4 % (0.0-3.0); HEMATOCRIT 34.5 % (36.0-47.0); HEMOGLOBIN 11.1 g/dl (12.0-15.5); LYMPH % 41.7 % (24.0-44.0); MEAN CORPUSCULAR HEMOGLOBIN 31.6 pg (27.0-33.0); MEAN CORPUSCULAR HGB CONC 32.2 g/dl (32.0-36.5); MEAN CORPUSCULAR VOLUME 98.3 fl (80.0-96.0); MONO % 8.2 % (2.0-8.0); NEUTROPHILS # 5.4 10^3/uL (1.5-8.5); NEUTROPHILS % 44.8 % (36.0-66.0); PLATELET COUNT, AUTOMATED 292 10^3/uL (150-450); RED BLOOD COUNT 3.51 10^6/uL (4.00-5.40)
[2024-10-01 11:13] LABS: ALBUMIN 3.3 G/DL (3.2-5.2); BILIRUBIN,TOTAL 0.4 MG/DL (0.3-1.2); CREATININE FOR GFR 1.38 MG/DL (0.55-1.30); GLOMERULAR FILTRATION RATE 43.6 (>45); POTASSIUM SERUM 4.7 MMOL/L (3.5-5.1); TOTAL PROTEIN 6.3 G/DL (5.7-8.2)
== END ==
LOC: M PLALAB 09:21
PROVIDERS: ATTEND Physician Assistant Medical
DX: T50.905A Adverse effect of unspecified drugs, medicaments and biological substances, initial encounter (principal)